=== PATIENT | female | born 1965 | race Caucasian/White ===

== ENCOUNTER 2024-08-06 16:35 | Inpatient (IN) | payer BC, SELFPAY ==
--- NOTE | ~2024-08-06 | XR_ITS ---
EXAMINATION: XR FOOT, LEFT CLINICAL INFORMATION: Wound. Concern for osteomyelitis. COMPARISON: None available. TECHNIQUE: AP, lateral, and oblique views of the left foot. FINDINGS: Radiolucent lesion with sclerotic margins at the proximal shaft of the third metatarsal measuring about 7 mm. The osteosclerotic margins suggesting a benign etiology. There is no abnormal periosteal reaction. There is loss of Bone/bone destruction of the distal tuft of the distal phalanx of the fourth toe. In an appropriate clinical setting this would be concerning for osteomyelitis. No air in the soft tissue. Large plantar calcaneal spur. XR/XR foot LT min 3V IMPRESSION: Bone destruction of the distal tuft of the distal phalanx of the fourth toe. In an appropriate clinical setting this would be concerning for osteomyelitis. Electronically signed by: Jakob Lopez MD 08/06/2024 06:30 PM EDT
--- NOTE | ~2024-08-06 | US_ITS ---
EXAMINATION: US TRIPLEX LOWER EXTREMITY, LEFT CLINICAL INFORMATION: Swelling COMPARISON: None available. TECHNIQUE: Color-flow triplex imaging with spectral analysis and compression Doppler were performed on the left lower extremity. FINDINGS: Respiratory variation, normal compression and augmented flow are noted throughout the left lower extremity. The visualized common femoral vein, superficial femoral vein, profunda femoral vein, popliteal vein and midcalf peroneal and posterior tibial venous segments show no evidence of deep venous thrombosis. There is no Reynolds's cyst. Multiple groin lymph nodes. US/US venous duplex LE LT IMPRESSION: No evidence of deep venous thrombosis involving the left lower extremity. Electronically signed by: Chari Hill MD 08/06/2024 05:51 PM EDT
--- NOTE | ~2024-08-06 | IR_ITS ---
CLINICAL HISTORY: IV antibiotics. Unsuccessful bedside attempt. PROCEDURES: 1. Real-time ultrasound-guided access into the right basilic vein after documentation of selected vessel patency, and permanent imaging storing in the patient record. 2. Placement of a 5 fr 45 cm, dual lumen PASV power PICC CLINICIANS: Zaid Santos PA-C MEDICATIONS: -Lidocaine 1% 10 mL SQ. -Antibiotics: None. Complications: None. Estimated blood loss: <5 ml Specimens: None. Contrast: None. Fluoroscopy time: 0.5 min Procedure note: The procedure, risks, benefits, and alternatives were carefully explained to the patient and written informed consent was obtained. The patient was placed supine on the fluoroscopy table. A timeout was performed. The right arm was prepped and draped in usual sterile fashion. Using ultrasound and fluoroscopic guidance, venous access was achieved into the basilic vein with a micropuncture set. A peel-away sheath was advanced over the wire. The 0.018 inch wire was advanced into the right atrium. A 5 fr, 45 cm, dual lumen power PICC was advanced over the wire, with its tip in the the cavoatrial junction. The wire was removed. The catheter was tested and secured with a 3-0 nylon suture. A dry sterile dressing was applied. A permanent ultrasound image and chest fluoroscopic image was saved to PACS. The patient was stable after the procedure and was transferred to the floor. FINDINGS: 1. Patent right basilic vein 2. Placement of a 5 fr 45 cm, dual lumen power PICC IR/IR cvc insert peripheral IMPRESSION: Placement of a 5 fr 45 cm, dual lumen PASV power PICC PLAN: -The catheter may be used immediately. This procedure was performed by Zaid Santos PA-C, and directly supervised by Dr. Garza Electronically signed by: Alejandro Garza MD 08/12/2024 08:55 AM EDT
--- NOTE | ~2024-08-06 | US_ITS ---
EXAMINATION: ARTERIAL DUPLEX LEFT LEG CLINICAL INFORMATION: PVD COMPARISON: None TECHNIQUE: Duplex Doppler of the left lower extremity arterial systems was performed. FINDINGS: LEFT: Common femoral: PSV 146 cm/s. Triphasic waveform. Deep femoral: PSV 39 cm/s. Triphasic waveform. Proximal superficial femoral: PSV 80 cm/s. Triphasic waveform. Mid superficial femoral: PSV 130 cm/s. High flow monophasic waveform. Distal superficial femoral: PSV 107 cm/s. Triphasic waveform. Popliteal: PSV 81 cm/s. High flow monophasic waveform. Posterior tibial: PSV 100 cm/s. Triphasic waveform. Peroneal: PSV 113 cm/s. High flow monophasic waveform. Anterior tibial: PSV 56 cm/s. High flow monophasic waveform. Dorsalis pedis: PSV 47 cm/s. High flow monophasic waveform. There are morphologically normal, mildly enlarged lymph nodes in the left groin. US/US arterial duplex LE LT IMPRESSION: No evidence of hemodynamically significant peripheral arterial disease by Doppler criteria. There are high flow monophasic waveforms which are nonspecific but can be seen after exercise, with hyperthermia, and with hyperemia such as cellulitis. Clinical correlation and follow-up are necessary. Morphologically normal, mildly enlarged lymph nodes in the left groin are likely reactive. Clinical correlation and follow-up are necessary. Electronically signed by: Andrew Arguelles MD 08/07/2024 10:18 AM EDT
[2024-08-06 16:56] VITALS: BP 119/83; PULSE 91; RESP 16; TEMP 37.1; O2SAT 98; BMI 41.2
--- NOTE | 2024-08-06 16:57 | ED.EXTPRO ---
HPI - Extremity Problem General Chief complaint: Wound/Laceration Stated complaint: left foot red,swollen Time Seen by Provider: 08/06/24 22:16 Source: patient Limitations: no limitations History of Present Illness ED Provider: Michelle Chase PA-C HPI Narrative: 59-year-old female with history of diabetes, hypertension, hyperlipidemia and hypothyroidism presents with left foot infection times 5 days. Patient states she developed left 4th toe pain without preceding injury that she recalls. Patient developed a blister on top of the toe that became increasingly red, warm and swollen. At this point, the tissue has sloughed off, exposing the underlying tissue. The warmth, swelling and redness now spans across the dorsum of the foot and upward over anterior guy. Patient was seen at urgent care the beginning of the week was placed on doxycycline. Patient denies fever. Related Data Home Medications ?Medication ?Instructions ?Recorded ?Confirmed atorvastatin 10 mg tablet 10 mg PO DAILY 08/06/24 08/06/24 diazepam 10 mg tablet 10 mg PO TID 08/06/24 08/06/24 glipizide 10 mg tablet, extended 10 mg PO DAILY 08/06/24 08/06/24 release 24 hr hydromorphone 4 mg tablet 4 mg PO TID 08/06/24 08/06/24 levothyroxine 150 mcg tablet 150 mcg PO DAILY 08/06/24 08/06/24 lisinopril 5 mg tablet 5 mg PO DAILY 08/06/24 08/06/24 semaglutide 3 mg tablet (Rybelsus) 3 mg PO DAILY 08/06/24 08/06/24 Allergies Allergy/AdvReac Type Severity Reaction Status Date / Time oxycodone [From PERCOCET] Allergy Unknown HEADACHE, Verified 08/06/24 23:11 UPSET STOMACH Sulfa (Sulfonamide Allergy Unknown unknown Verified 08/06/24 23:11 Antibiotics) [SULFA (SULFONAMIDE ANTIBIOTICS)] acetaminophen [From VICODIN] AdvReac Unknown HEADACHE, Verified 08/06/24 23:11 UPSET STOMACH cortisone [CORTISONE] AdvReac Unknown flu like Verified 08/06/24 23:11 symptoms hydrocodone [From VICODIN] AdvReac Unknown HEADACHE, Verified 08/06/24 23:11 UPSET STOMACH prednisone [PREDNISONE] AdvReac Unknown flu like Verified 08/06/24 23:11 symptoms Review of Systems Review of Systems: Yes all other systems are reviewed and are negative Constitutional: Constitutional: Denies fever(s) Cardiovascular: Cardiovascular: Denies chest pain and Denies dyspnea Respiratory: Respiratory: Denies dyspnea Musculoskeletal: Musculoskeletal: Reports arthralgias and Reports joint swelling [facility] Past Medical History Attestation statement: The following information was validated with the patient. Social History Social History Advance Directives: No Advance Directives Information Provided: No Physical Exam Vital Signs: Vital Signs: Last Vital Signs Temp 98.5 F 08/06/24 23:16 Pulse 87 08/06/24 23:16 Resp 16 08/06/24 23:16 BP 129/70 08/06/24 23:16 Pulse Ox 97 08/06/24 23:16 O2 Del Method Room Air 08/06/24 23:16 BMI result Body Mass Index 41.2 Const: Other: Alert, overall well in appearance Orientation/consciousness: patient oriented x3 Resp: Other: Nonlabored respiration Cardio: Other: Normal peripheral perfusion Neuro: General: patient oriented x3, no focal motor deficits and CN's II-XI intact bilaterally Extrem: Other: The left foot is swollen with overlying erythema/purpura vs ecchymosis, spans over the dorsum of the foot and extends upward over anterior guy. The dorsum of the left toe is abraded to subcutaneous tissue, with bloody drainage. The lower extremity is warm to touch Psych: Other: [employer] cooperative Course Course Course Narrative: This is a Rapid Medical Examination (RME) performed by Tyrone Alcala PA-C in triage. Full HPI, ROS, assessment and treatment plan per primary provider in the Main ED. 59 yo female with history of DM2 presents to the ER for evaluation of left toe and foot redness and pain that has been worsening for the last 3 days. Has been on doxycycline since Saturday. Started as a sore 4th toe that expanded to a large blood blister and now the redness and swelling is spreading up the foot and leg. left foot with 4th toe wound, yellow drainage, erythema, warmth and swelling over the entire foot and lower leg swelling present. ambulating with a limp. Plan: XR foot, labs, cultures, LE doppler Medications Administered Discontinued Medications Generic Name Dose Route Start Last Admin Trade Name Freq PRN Reason Stop Dose Admin Piperacillin Sod/Tazobactam 50 mls @ 100 mls/hr 08/06/24 22:44 08/06/24 23:10 Sod 3.375 gm/ Sodium Chloride IV 08/06/24 23:13 100 mls/hr ONCE ONE Administration Medical Decision Making Medical Decision Making [facility] Narrative: 59-year-old female with history of diabetes, hypertension, hyperlipidemia and hypothyroidism presents with left foot infection times 5 days. Patient states she developed left 4th toe pain without preceding injury that she recalls. Patient developed a blister on top of the toe that became increasingly red, warm and swollen. At this point, the tissue has sloughed off, exposing the underlying tissue. The warmth, swelling and redness now spans across the dorsum of the foot and upward over anterior guy. Patient was seen at urgent care the beginning of the week was placed on doxycycline. Patient denies fever. Problem: Diabetes, hypertension, age History: Per patient I have considered the following differential diagnoses: Cellulitis, purulent cellulitis, fracture, dislocation, osteomyelitis Plan: Patient is assessment began in [facility], she has known osteomyelitis of the left 4th digit. Screening labs including inflammatory markers were obtained. Obtaining blood cultures and a lactate. We will start empiric Zosyn and vancomycin, she will be admitted. I have independently reviewed the following tests: Labs: Lactate 0.8, no leukocytosis, not anemic, no electrolyte abnormality Ultrasound left lower extremity: ECHNIQUE: Color-flow triplex imaging with spectral analysis and compression Doppler were performed on the left lower extremity. FINDINGS: Respiratory variation, normal compression and augmented flow are noted throughout the left lower extremity. The visualized common femoral vein, superficial femoral vein, profunda femoral vein, popliteal vein and midcalf peroneal and posterior tibial venous segments show no evidence of deep venous thrombosis. There is no Reynolds's cyst. Multiple groin lymph nodes. US/US venous duplex LE LT IMPRESSION: No evidence of deep venous thrombosis involving the left lower extremity. Electronically signed by: Chari Hill MD 08/06/2024 05:51 PM EDT X-ray left foot:TECHNIQUE: AP, lateral, and oblique views of the left foot. FINDINGS: Radiolucent lesion with sclerotic margins at the proximal shaft of the third metatarsal measuring about 7 mm. The osteosclerotic margins suggesting a benign etiology. There is no abnormal periosteal reaction. There is loss of Bone/bone destruction of the distal tuft of the distal phalanx of the fourth toe. In an appropriate clinical setting this would be concerning for osteomyelitis. No air in the soft tissue. Large plantar calcaneal spur. XR/XR foot LT min 3V IMPRESSION: Bone destruction of the distal tuft of the distal phalanx of the fourth toe. In an appropriate clinical setting this would be concerning for osteomyelitis. Electronically signed by: Jakob Lopez MD 08/06/2024 06:30 PM EDT Lab Data 08/06/24 17:51 08/06/24 17:50 Labs: Lab Results 08/06/24 08/06/24 Range/Units 17:50 17:51 WBC 9.4 (4.8-10.8) X10*3/uL RBC 4.48 (4.20-5.50) X10*6/uL Hgb 13.6 (12.0-16.0) g/dl Hct 39.3 (37.0-47.0) % MCV 87.7 (80.0-98.0) fL MCH 30.4 (27.0-33.0) pg MCHC 34.6 (31.0-35.0) g/dl RDW 11.6 (11.0-16.0) % Plt Count 198 (160-400) X10*3/uL MPV 10.2 (9.4-12.3) fL Immature Gran % (Auto) 0.3 (0.0-0.4) % Neut % (Auto) 57.0 (45-73) % Lymph % (Auto) 29.8 (20-40) % Shannon % (Auto) 7.5 (2-11) % Eos % (Auto) 4.8 H (0-4) % Baso % (Auto) 0.6 (0-2) % Lymph # (Auto) 2.8 (1.2-4.9) X10*3/uL Shannon # (Auto) 0.7 (0.1-1.2) X10*3/uL Eos # (Auto) 0.5 H (0.0-0.4) X10*3/uL Baso # (Auto) 0.1 (0.0-0.2) X10*3/uL Abs Immat Gran (auto) 0.03 (0.00-0.03) X10*3/uL Absolute Neuts (auto) 5.4 (2.0-8.3) x10*3/uL Absolute Nucleated RBC 0.000 (0.0-0.012) X10*3/uL Nucleated RBC % (auto) 0.0 (0.0-0.2) /100WBC ESR 58 H (0-20) MM/HR Sodium 138 (135-145) mmol/L Potassium 4.4 (3.3-5.1) mmol/L Chloride 102 (96-108) mmol/L Carbon Dioxide 27 (22-29) mmol/L Anion Gap 13 (12-20) BUN 16 (9-16) mg/dL Creatinine 0.87 (0.5-1.4) mg/dL Estim Creat Clear Calc 84.9 Estimated GFR > 60 Random Glucose 157 H (60-115) mg/dL Lactic Acid 0.8 (0.5-2.0) mmol/L Calcium 9.9 (8.4-10.2) mg/dL Magnesium 1.8 (1.6-2.6) mg/dL Total Bilirubin 0.3 (0.0-1.0) mg/dL Direct Bilirubin 0.1 (0.0-0.5) mg/dL AST 27 (5-31) U/L ALT 28 (0-31) U/L Alkaline Phosphatase 88 (39-117) U/L C-Reactive Protein 4.01 H (< or = 0.50) mg/dL Total Protein 8.0 (6.5-8.0) g/dL Albumin 3.9 (3.5-5.0) g/dL Discharge Plan Discharge Clinical Impression: Acute osteomyelitis of toe of left foot Prescriptions: No Action atorvastatin 10 mg tablet 10 mg PO DAILY glipizide 10 mg tablet extended release 24hr 10 mg PO DAILY levothyroxine 150 mcg tablet 150 mcg PO DAILY lisinopril 5 mg tablet 5 mg PO DAILY diazepam 10 mg tablet 10 mg PO TID hydromorphone 4 mg tablet 4 mg PO TID Rybelsus 3 mg tablet 3 mg PO DAILY Print Language: Macedonian
[2024-08-06 17:56] LABS: MANUAL DIFF FLAG NO
[2024-08-06 18:01] LABS: Basophils Absolute Auto 0.1 X10*3/uL (0.0-0.2); Basophils Percent Auto 0.6 % (0-2); Eosinophils Absolute Auto 0.5 X10*3/uL (0.0-0.4); Eosinophils Percent Auto 4.8 % (0-4); Hematocrit 39.3 % (37.0-47.0); Hemoglobin 13.6 g/dl (12.0-16.0); Imm Gran Abs Auto 0.03 X10*3/uL (0.00-0.03); Imm Gran Pct Auto 0.3 % (0.0-0.4); Lymphocytes Absolute Auto 2.8 X10*3/uL (1.2-4.9); Lymphocytes Percent Auto 29.8 % (20-40); Mean Corpuscular HGB Conc 34.6 g/dl (31.0-35.0); Mean Corpuscular Hemoglobin 30.4 pg (27.0-33.0); Mean Corpuscular Volume 87.7 fL (80.0-98.0); Mean Platelet Volume 10.2 fL (9.4-12.3); Monocytes Absolute Auto 0.7 X10*3/uL (0.1-1.2); Monocytes Percent Auto 7.5 % (2-11); Neutrophils Absolute Auto 5.4 x10*3/uL (2.0-8.3); Platelet Count 198 X10*3/uL (160-400); Red Blood Count 4.48 X10*6/uL (4.20-5.50); Red Cell Distribution Width 11.6 % (11.0-16.0); White Blood Count 9.4 X10*3/uL (4.8-10.8)
[2024-08-06 18:22] LABS: Lactic Acid 0.8 mmol/L (0.5-2.0)
[2024-08-06 18:28] LABS: Alanine Aminotransferase 28 U/L (0-31); Albumin Level 3.9 g/dL (3.5-5.0); Alkaline Phosphatase 88 U/L (39-117); Anion Gap 13 (12-20); Aspartate Amino Transferase 27 U/L (5-31); Bilirubin Direct 0.1 mg/dL (0.0-0.5); Bilirubin Total 0.3 mg/dL (0.0-1.0); Blood Urea Nitrogen 16 mg/dL (9-16); C Reactive Protein 4.01 mg/dL (< or = 0.50); Calcium 9.9 mg/dL (8.4-10.2); Carbon Dioxide 27 mmol/L (22-29); Chloride 102 mmol/L (96-108); Creatinine Clr Calc Pharmacy 84.9; Estimated Glomerular Filt Rate > 60; Glucose Random 157 mg/dL (60-115); Magnesium 1.8 mg/dL (1.6-2.6); Potassium 4.4 mmol/L (3.3-5.1); Sodium 138 mmol/L (135-145)
[2024-08-06 18:55] LABS: Erythrocyte Sedimentation Rate 58 MM/HR (0-20)
[2024-08-06] MEDS: Piperacillin Sodium/Tazobactam 3.375 GM in 0.9 % Sodium Chloride 50 ML IV (23:10)
[2024-08-06 23:16] VITALS: BP 129/70; PULSE 87; RESP 16; TEMP 36.9; O2SAT 97
--- NOTE | 2024-08-07 | PM.IMHP ---
History of Present Illness Date of Service: 08/07/24 Chief Complaint: left toe and leg erythema 59F PMH DM, morbid obesity, chronic pain/ back spasms, hypothryoid, hld presented with lle erythema. Patient states she woke up about 4 days prior to presentation with blood blister on left 4th toe. Does not remember any trauma. Denies significant neuropathy to left foot. Blister then ruptured and patient started noticing increased swelling and erythema of foot and lower leg. Denies any fever or chills. In ED foot x-ray with concern for left 4th toe osteomyelitis, duplex negative for DVT. Review of Systems Review of Systems: Yes all other systems are reviewed and are negative [facility] Medical History (Updated 08/07/24 @ 00:03 by Ranjan Pepe MD) Diabetes mellitus Social History Advance Directives: No Advance Directives Information Provided: No Meds Allergies Allergy/AdvReac Type Severity Reaction Status Date / Time oxycodone [From PERCOCET] Allergy Unknown HEADACHE, Verified 08/06/24 23:11 UPSET STOMACH Sulfa (Sulfonamide Allergy Unknown unknown Verified 08/06/24 23:11 Antibiotics) [SULFA (SULFONAMIDE ANTIBIOTICS)] acetaminophen [From VICODIN] AdvReac Unknown HEADACHE, Verified 08/06/24 23:11 UPSET STOMACH cortisone [CORTISONE] AdvReac Unknown flu like Verified 08/06/24 23:11 symptoms hydrocodone [From VICODIN] AdvReac Unknown HEADACHE, Verified 08/06/24 23:11 UPSET STOMACH prednisone [PREDNISONE] AdvReac Unknown flu like Verified 08/06/24 23:11 symptoms Active Medications: Current Medications Atorvastatin Calcium (Atorvastatin Calcium 10 Mg Tablet) 10 mg PO DAILY [facility] Diazepam (Diazepam 5 Mg Tablet) 10 mg PO TID [facility] Diazepam (Diazepam 5 Mg Tablet) 10 mg PO ONCE ONE Stop: 08/06/24 23:59 Glucose (Glucose Gel 15 Gm Gel..Gram.) 15 gm PO Q15M PRN; Protocol PRN Reason: per Hypoglycemia Standing Ord. Hydromorphone HCl (Hydromorphone Hcl 4 Mg Tablet) 4 mg PO TID [facility] Hydromorphone HCl (Hydromorphone Hcl 4 Mg Tablet) 4 mg PO ONCE ONE Stop: 08/06/24 23:59 Vancomycin HCl (Vancomycin/Ns) 2,000 mg in 500 mls @ 250 mls/hr IV ONCE ONE Stop: 08/07/24 00:43 Dextrose (D10) 250 mls @ 750 mls/hr IV Q15M PRN; Protocol PRN Reason: per Hypoglycemia Standing Ord. Vancomycin HCl 1,000 mg/ (Sodium Chloride) 270 mls @ 270 mls/hr IV Q12H [facility] Piperacillin Sod/Tazobactam (Sod 3.375 gm/ Sodium Chloride) 50 mls @ 100 mls/hr IV Q6H [facility] Insulin Human Lispro (Insulin Lispro 100 Unit/Ml 3 Ml Vial) 0 unit SUBCUT QIDACHS [facility]; Protocol Levothyroxine Sodium (Levothyroxine Sodium 150 Mcg Tablet) 150 mcg PO DAILY@0630 [facility] Lisinopril (Lisinopril 5 Mg Tablet) 5 mg PO DAILY [facility]; Protocol Pharmacy Consult (Consult Rx Vancomycin Dosing) 1 each MISCELLANE DAILY PRN PRN Reason: Consult order Home Medications ?Medication ?Instructions ?Recorded ?Confirmed ?Last Taken ?Type atorvastatin 10 mg tablet 10 mg PO DAILY 08/06/24 08/06/24 Unknown History diazepam 10 mg tablet 10 mg PO TID 08/06/24 08/06/24 Unknown History glipizide 10 mg tablet, extended 10 mg PO DAILY 08/06/24 08/06/24 Unknown History release 24 hr hydromorphone 4 mg tablet 4 mg PO TID 08/06/24 08/06/24 Unknown History levothyroxine 150 mcg tablet 150 mcg PO DAILY 08/06/24 08/06/24 Unknown History lisinopril 5 mg tablet 5 mg PO DAILY 08/06/24 08/06/24 Unknown History semaglutide 3 mg tablet (Rybelsus) 3 mg PO DAILY 08/06/24 08/06/24 Unknown History Physical Exam Vital Signs and Narrative: Vital Signs: Last Vital Signs Temp 98.5 F 08/06/24 23:16 Pulse 87 08/06/24 23:16 Resp 16 08/06/24 23:16 BP 129/70 08/06/24 23:16 Pulse Ox 97 08/06/24 23:16 O2 Del Method Room Air 08/06/24 23:16 BMI result Body Mass Index 41.2 General: AO X 3, no acute distress Resp: CTA bilateral, no accessory muscles used CVS: S1,S2,RRR GI: soft, non tender, non distended Neuro: motor grossly intact, alert Psych: appropriate affect, appropriate insight Results Labs 08/06/24 17:51 08/06/24 17:50 Labs: Laboratory Results - last 24 hr 08/06/24 08/06/24 17:50 17:51 MCV 87.7 MCH 30.4 MCHC 34.6 RDW 11.6 Plt Count 198 MPV 10.2 Immature Gran % (Auto) 0.3 Neut % (Auto) 57.0 Lymph % (Auto) 29.8 Gray % (Auto) 7.5 Eos % (Auto) 4.8 H Baso % (Auto) 0.6 Lymph # (Auto) 2.8 Gray # (Auto) 0.7 Eos # (Auto) 0.5 H Baso # (Auto) 0.1 Abs Immat Gran (auto) 0.03 Absolute Neuts (auto) 5.4 Absolute Nucleated RBC 0.000 Nucleated RBC % (auto) 0.0 ESR 58 H Anion Gap 13 Estim Creat Clear Calc 84.9 Estimated GFR > 60 Random Glucose 157 H Lactic Acid 0.8 Calcium 9.9 Magnesium 1.8 Total Bilirubin 0.3 Direct Bilirubin 0.1 AST 27 ALT 28 Alkaline Phosphatase 88 C-Reactive Protein 4.01 H Total Protein 8.0 Albumin 3.9 Imaging Radiologist's Impressions: Impressions Foot X-Ray 08/06/24 16:58 IMPRESSION: Bone destruction of the distal tuft of the distal phalanx of the fourth toe. In an appropriate clinical setting this would be concerning for osteomyelitis. Electronically signed by: Jakob Lopez MD 08/06/2024 06:30 PM EDT RP Venous Duplex 08/06/24 17:30 IMPRESSION: No evidence of deep venous thrombosis involving the left lower extremity. Electronically signed by: Chari Hill MD 08/06/2024 05:51 PM EDT RP Assessment and Plan (1) Diabetes mellitus: Status: Acute Plan 59F PMH DM, morbid obesity, chronic pain/ back spasms, hypothryoid, hld presented with lle erythema Left lower extremity cellulitis and concern for left 4th toe osteomyelitis due to diabetes IV vancomycin Zosyn Check arterial duplex Follow-up cultures ID and vascular eval Morbid obesity Weight loss recommended Diabetes Insulin sliding scale Lisinopril for proteinuria Chronic pain/back spasms Continue hydromorphone and Valium Hypothyroid Continue levothyroxine Hyperlipidemia continue statin DVT prophylaxis with Lovenox Full Code Patient with significant cellulitis and possible osteomyelitis requiring IV antibiotics at risk for further decompensation due to diabetes, therefore expected require at least 2 midnights inpatient Quality Stroke Does the patient have a stroke diagnosis?: No VTE Prior VTE?: No VTE Risk Level:: Medical - moderate - high VTE Device Contraindication: Treatment Not Indicated VTE Drug Contraindication: N/A - Med Ordered
[2024-08-07] MEDS: vancomycin/NS 2,000 MG/500 ML PLAST..BAG 250 MG IV (00:29)
[2024-08-07] MEDS: diazePAM 5 MG TABLET 10 MG PO ×4 (00:45→20:18)
[2024-08-07 00:52] LABS: Appearance Urine Clear; Color Urine Yellow; Glucose Urine UA Negative (Negative); Leukocyte Esterase Urine Small (1+) (Negative); Nitrite Urine Negative (Negative); UMIC TRIGGER UACC YES; Urine Blood Negative (Negative); Urine Ketones Negative (Negative); Urine Protein Negative (Neg-Trace)
[2024-08-07 00:55] LABS: Bacteria Urine Trace (None Seen); Hyaline Casts Urine 0-2 /LPF (0-2); RBC Urine 0-2 /HPF (0-2); UACC Culture Trigger YES
[2024-08-07 01:03] VITALS: BMI 40.1
--- NOTE | 2024-08-07 01:24 | PC.NURSE ---
pt had home meds on self, some controlled, meds sealed in pharmacy bag; verified and handed over to Medsurg KATEY Holcomb. pt transported to [facility].
[2024-08-07 01:45] VITALS: BP 129/87; PULSE 80; RESP 18; TEMP 36; O2SAT 99
[2024-08-07] MEDS: Piperacillin Sodium/Tazobactam 3.375 GM in 0.9 % Sodium Chloride 50 ML IV ×4 (05:21→23:15)
[2024-08-07 05:24] VITALS: BP 122/61; PULSE 80; RESP 16; TEMP 36.1; O2SAT 99
[2024-08-07 06:42] LABS: Anion Gap 11 (12-20); Blood Urea Nitrogen 12 mg/dL (9-16); Calcium 9.5 mg/dL (8.4-10.2); Carbon Dioxide 27 mmol/L (22-29); Chloride 105 mmol/L (96-108); Creatinine Clr Calc Pharmacy 82.7; Estimated Glomerular Filt Rate > 60; Glucose Fasting 186 mg/dL (60-99); Magnesium 1.9 mg/dL (1.6-2.6); Potassium 4.6 mmol/L (3.3-5.1); Sodium 138 mmol/L (135-145)
[2024-08-07 06:43] LABS: Hematocrit 41.3 % (37.0-47.0); Hemoglobin 13.7 g/dl (12.0-16.0); Mean Corpuscular HGB Conc 33.2 g/dl (31.0-35.0); Mean Corpuscular Hemoglobin 29.6 pg (27.0-33.0); Mean Corpuscular Volume 89.2 fL (80.0-98.0); Mean Platelet Volume 10.5 fL (9.4-12.3); Platelet Count 196 X10*3/uL (160-400); Red Blood Count 4.63 X10*6/uL (4.20-5.50); Red Cell Distribution Width 11.8 % (11.0-16.0); White Blood Count 6.3 X10*3/uL (4.8-10.8)
[2024-08-07 07:38] VITALS: BP 116/59; PULSE 74; RESP 16; TEMP 36; O2SAT 99
[2024-08-07 07:38] LABS: Glucose, Whole Blood 161 mg/dL (60-115)
[2024-08-07] MEDS: lisinopriL 5 MG TABLET PO (08:13)
[2024-08-07] MEDS: Atorvastatin Calcium 10 MG TABLET PO (08:14)
[2024-08-07] MEDS: 0.9 % Sodium Chloride Flush 3 ML SYRINGE IVFLUSH ×3 (08:15→20:20)
[2024-08-07] MEDS: glipiZIDE XL 5 MG TAB.ER.24 PO (10:27)
--- NOTE | 2024-08-07 10:46 | P.CONGS_ITS ---
History of Present Illness Consult details Consult date: 08/07/24 Reason for consult: wound care Narrative: Very pleasant 59-year-old female presents for evaluation regarding nonhealing left foot ulcer. She reports that it originally began as a blood blister. She denies any significant trauma. It is expanded on the toe and blistered. She had thoughts of opening it up but it eventually opened on its own. Became quite erythematous and was subsequently brought into the hospital. She reports a longstanding history of diabetes. In addition she quit smoking about 5 years ago prior to that she was smoking about a pack a day. She now presents to us for vascular evaluation. Review of Systems 2 Review of Systems: Yes all other systems are reviewed and are negative Constitutional: Constitutional: Reports no additional constitutional complaints ENT: Reports Normal hearing present Cardiovascular: Cardiovascular: Denies chest pain, Denies chest pain at rest, Denies chest pain with activity and Denies pedal edema Respiratory: Respiratory: Denies cough Gastrointestinal: Gastrointestinal: Denies abdominal pain Musculoskeletal: Musculoskeletal: Denies abnormal gait, Denies muscle cramps and Denies radiating pain into limb Integumentary/Breasts: Skin/Breast: Denies skin ulcer and Denies wounds Neurologic: Reports Normal hearing present and Denies abnormal gait Psychiatric: Psychiatric: Reports no additional psychiatric complaints PMFSH Past Medical History Medical History (Updated 08/07/24 @ 11:28 by Terrell Cameron MD) Diabetes mellitus Social History Social History Household Members: Family and Other Household Members Other:: mother Housing: House Do you presently have visiting nurse or other home services: No Patient Tobacco Use Status: Former Tobacco user Substance Use Type: Marijuana Meds Allergies Allergy/AdvReac Type Severity Reaction Status Date / Time oxycodone [From PERCOCET] Allergy Unknown HEADACHE, Verified 08/06/24 23:11 UPSET STOMACH Sulfa (Sulfonamide Allergy Unknown unknown Verified 08/06/24 23:11 Antibiotics) [SULFA (SULFONAMIDE ANTIBIOTICS)] acetaminophen [From VICODIN] AdvReac Unknown HEADACHE, Verified 08/06/24 23:11 UPSET STOMACH cortisone [CORTISONE] AdvReac Unknown flu like Verified 08/06/24 23:11 symptoms hydrocodone [From VICODIN] AdvReac Unknown HEADACHE, Verified 08/06/24 23:11 UPSET STOMACH prednisone [PREDNISONE] AdvReac Unknown flu like Verified 08/06/24 23:11 symptoms Active Medications: Current Medications Atorvastatin Calcium (Atorvastatin Calcium 10 Mg Tablet) 10 mg PO DAILY [facility] Last Admin: 08/07/24 08:14 Dose: 10 mg Calcium Carbonate (Calcium Carbonate 750 Mg Tab.Chew) 750 mg PO Q4H PRN PRN Reason: Heartburn Diazepam (Diazepam 5 Mg Tablet) 10 mg PO TID [facility] Last Admin: 08/07/24 08:14 Dose: 10 mg Enoxaparin Sodium (Enoxaparin Sodium 40 Mg/0.4 Ml Syringe) 40 mg SUBCUT Q24H [facility] Last Admin: 08/07/24 08:19 Dose: Not Given Glipizide (Glipizide Xl 5 Mg Tab.Er.24) 5 mg PO DAILY [facility] Last Admin: 08/07/24 10:27 Dose: 5 mg Glucose (Glucose Gel 15 Gm Gel..Gram.) 15 gm PO Q15M PRN; Protocol PRN Reason: per Hypoglycemia Standing Ord. Hydromorphone HCl (Hydromorphone Hcl 4 Mg Tablet) 4 mg PO TID [facility] Last Admin: 08/07/24 08:14 Dose: 4 mg Dextrose (D10) 250 mls @ 750 mls/hr IV Q15M PRN; Protocol PRN Reason: per Hypoglycemia Standing Ord. Piperacillin Sod/Tazobactam (Sod 3.375 gm/ Sodium Chloride) 50 mls @ 100 mls/hr IV Q6H [facility] Last Infusion: 08/07/24 06:03 Dose: Infused Vancomycin HCl 750 mg/ Sodium (Chloride) 265 mls @ 265 mls/hr IV Q12H [facility] Insulin Human Lispro (Insulin Lispro 100 Unit/Ml 3 Ml Vial) 0 unit SUBCUT QIDACHS [facility]; Protocol Last Admin: 08/07/24 08:20 Dose: Not Given Levothyroxine Sodium (Levothyroxine Sodium 150 Mcg Tablet) 150 mcg PO DAILY@0630 [facility] Last Admin: 08/07/24 05:36 Dose: Not Given Lisinopril (Lisinopril 5 Mg Tablet) 5 mg PO DAILY [facility]; Protocol Last Admin: 08/07/24 08:13 Dose: 5 mg Magnesium Hydroxide (Milk Of Magnesia 30 Ml Oral.Susp) 30 ml PO DAILY PRN PRN Reason: Constipation Melatonin (Melatonin 3 Mg Tablet) 6 mg PO BEDTIME PRN PRN Reason: Insomnia Pharmacy Consult (Consult Rx Vancomycin Dosing) 1 each MISCELLANE DAILY PRN PRN Reason: Consult order Sodium Chloride (0.9 % Sodium Chloride Flush 3 Ml Syringe) 3 ml [facility] [place] Last Admin: 08/07/24 08:15 Dose: 3 ml Zolpidem Tartrate (Zolpidem Tartrate 5 Mg Tablet) 5 mg PO BEDTIME PRN PRN Reason: Insomnia Home Medications ?Medication ?Instructions ?Recorded ?Confirmed ?Last Taken ?Type atorvastatin 10 mg tablet 10 mg PO DAILY 08/06/24 08/06/24 Unknown History diazepam 10 mg tablet 10 mg PO TID 08/06/24 08/06/24 Unknown History glipizide 10 mg tablet, extended 10 mg PO DAILY 08/06/24 08/06/24 Unknown History release 24 hr hydromorphone 4 mg tablet 4 mg PO TID 08/06/24 08/06/24 Unknown History levothyroxine 150 mcg tablet 150 mcg PO DAILY 08/06/24 08/06/24 Unknown History lisinopril 5 mg tablet 5 mg PO DAILY 08/06/24 08/06/24 Unknown History semaglutide 3 mg tablet (Rybelsus) 3 mg PO DAILY 08/06/24 08/06/24 Unknown History Physical Exam 2 Vital Signs: Vital Signs: Last Vital Signs Temp 96.8 F 08/07/24 07:38 Pulse 74 08/07/24 07:38 Resp 16 08/07/24 07:38 BP 116/59 L 08/07/24 07:38 Pulse Ox 99 08/07/24 07:38 O2 Del Method Room Air 08/07/24 07:38 BMI result Body Mass Index 40.1 Const: General: cooperative, healthy appearing and comfortable O rientation/consciousness: oriented to person, oriented to place and oriented to time HEENT: Head: Yes normal to inspection Neck: Neck: Yes normal visual inspection Carotids: no bruits Chest: Chest palpation & inspection: normal inspection of the chest Resp: Effort & Inspection: normal respiratory effort and able to speak in complete sentences Auscultation: clear to auscultation bilaterally, no crackles, no rales, no rhonchi and no wheezes Cardio: Other: Bilateral DP signals Rate: regular rate Rhythm: regular rhythm Heart sounds: S1 normal heart sound present and S2 normal heart sound present Bruits: no carotid bruits Peripheral pulses: Peripheral pulses 2+ throughout GI: Inspection: Yes normal to inspection Skin: Wounds: no wounds Hair: normal Neuro: General: oriented to person, oriented to place and oriented to time Cranial nerves: Yes CN's II-XII intact bilaterally and Yes Normal hearing present Cognition (Neuro): normal cognition Motor exam (neuro): 5/5 motor strength present throughout Extrem: Other: venous exam: Left leg +2 edema, erythema from the foot tracking up the anterior part of the calf. General: No clubbing, No cyanosis and No edema Psych: Appearance: grossly normal Mental Status: mental status grossly normal Speech and movement: Normal speech and movement present Results Labs 08/07/24 05:39 08/07/24 05:39 Labs: Abnormal lab results 08/06/24 08/06/24 08/07/24 Range/Units 17:50 17:51 00:42 Eos % (Auto) 4.8 H (0-4) % Eos # (Auto) 0.5 H (0.0-0.4) X10*3/uL ESR 58 H (0-20) MM/HR Anion Gap (12-20) POC Glucose (60-115) mg/dL Random Glucose 157 H (60-115) mg/dL Fasting Glucose (60-99) mg/dL C-Reactive Protein 4.01 H (< or = 0.50) mg/dL Ur Leukocyte Esterase Small (1+) H (Negative) Urine WBC 6-10 H (0-5) /HPF 08/07/24 08/07/24 Range/Units 05:39 07:33 Eos % (Auto) (0-4) % Eos # (Auto) (0.0-0.4) X10*3/uL ESR (0-20) MM/HR Anion Gap 11 L (12-20) POC Glucose 161 H (60-115) mg/dL Random Glucose (60-115) mg/dL Fasting Glucose 186 H (60-99) mg/dL C-Reactive Protein (< or = 0.50) mg/dL Ur Leukocyte Esterase (Negative) Urine WBC (0-5) /HPF Short CBC 08/06/24 08/07/24 Range/Units 17:51 05:39 WBC 9.4 6.3 (4.8-10.8) X10*3/uL Hgb 13.6 13.7 (12.0-16.0) g/dl Hct 39.3 41.3 (37.0-47.0) % Plt Count 198 196 (160-400) X10*3/uL BMP 08/06/24 08/07/24 17:50 05:39 Sodium 138 138 Potassium 4.4 4.6 Chloride 102 105 Carbon Dioxide 27 27 BUN 16 12 Creatinine 0.87 0.88 Calcium 9.9 9.5 Liver Function 08/06/24 Range/Units 17:50 Total Bilirubin 0.3 (0.0-1.0) mg/dL Direct Bilirubin 0.1 (0.0-0.5) mg/dL AST 27 (5-31) U/L ALT 28 (0-31) U/L Alkaline Phosphatase 88 (39-117) U/L Albumin 3.9 (3.5-5.0) g/dL Urine 08/07/24 Range/Units 00:42 Urine Color Yellow Urine Appearance Clear Urine pH 6.0 (5.0-9.0) Ur Specific [place] 1.020 (1.005-1.025) Urine Protein Negative (Neg-Trace) mg/dL Urine Glucose (UA) Negative (Negative) mg/dL All other labs normal. Imaging Additional studies: Arterial ultrasound was reviewed in appears to be within normal limits. Assessment and Plan (1) PAD (peripheral artery disease): Status: Acute Plan In short patient has nonhealing left 4th toe ulcer. This is associated with cellulitis. X-ray demonstrates concern of osteomyelitis. Arterial testing appears to be within normal limits. At the current time would treat this conservatively with IV antibiotics. In terms of wound care would only recommend a dry protective dressing as it appears to be a dry superficial eschar. Stable from my perspective and actually can follow up with us as an outpatient as I do believe she does have an element of PA D and needs to be surveilled for this. Thank you for allowing us to assist in her care. If there are any questions or concerns please do not hesitate to contact us. Procedures Date of Service Date of Service: 08/07/24
[2024-08-07 10:47] LABS: Estimated Average Glucose 237 mg/dL; Hemoglobin A1c % 9.9 % (<6.0)
--- NOTE | 2024-08-07 11:05 | HO.PM.IMPN ---
Subjective Subjective Date of Service: 08/07/24 Interval History: seen and evaluated this morning feels better overall refusing blood checks and Insulin No other overnight events Review of Systems Review of Systems: Yes all other systems are reviewed and are negative Physical Exam Vital Signs: Vital Signs: Last Vital Signs Temp 96.8 F 08/07/24 07:38 Pulse 74 08/07/24 07:38 Resp 16 08/07/24 07:38 BP 116/59 L 08/07/24 07:38 Pulse Ox 99 08/07/24 07:38 O2 Del Method Room Air 08/07/24 07:38 BMI result Body Mass Index 40.1 Const: Other: Constitutional : Awake, interactive, not in distress Neck : Normal inspection, Supple Cardiovascular : RRR, no JVP, no lower extremity edema Respiratory : good bilateral air entry, no crackles, wheezes or rhonchi Gastrointestinal: soft, lax, Normal bowel sounds, Non tender Skin : Warm, Dry, left foot less swollen with overlying erythema up to anterior guy. warm with mild tenderness. exposed Left 4th toe dorsal side. Neurological : Alert & oriented x3, No focal deficit Objective Data Active Medications Atorvastatin Calcium (Atorvastatin Calcium 10 Mg Tablet) 10 mg PO DAILY [facility] Last Admin: 08/07/24 08:14 Dose: 10 mg Documented By: CARITO Calcium Carbonate (Calcium Carbonate 750 Mg Tab.Chew) 750 mg PO Q4H PRN PRN Reason: Heartburn Diazepam (Diazepam 5 Mg Tablet) 10 mg PO TID [facility] Last Admin: 08/07/24 08:14 Dose: 10 mg Documented By: CARITO Enoxaparin Sodium (Enoxaparin Sodium 40 Mg/0.4 Ml Syringe) 40 mg SUBCUT Q24H [facility] Last Admin: 08/07/24 08:19 Dose: Not Given Documented By: CARITO Non-Admin Reason: Patient Refused Glipizide (Glipizide Xl 5 Mg Tab.Er.24) 5 mg PO DAILY [facility] Last Admin: 08/07/24 10:27 Dose: 5 mg Documented By: CARITO Glucose (Glucose Gel 15 Gm Gel..Gram.) 15 gm PO Q15M PRN; Protocol PRN Reason: per Hypoglycemia Standing Ord. Hydromorphone HCl (Hydromorphone Hcl 4 Mg Tablet) 4 mg PO TID [facility] Last Admin: 08/07/24 08:14 Dose: 4 mg Documented By: CARITO Dextrose (D10) 250 mls @ 750 mls/hr IV Q15M PRN; Protocol PRN Reason: per Hypoglycemia Standing Ord. Piperacillin Sod/Tazobactam (Sod 3.375 gm/ Sodium Chloride) 50 mls @ 100 mls/hr IV Q6H [facility] Last Infusion: 08/07/24 06:03 Dose: Infused Documented By: RAJIV Vancomycin HCl 750 mg/ Sodium (Chloride) 265 mls @ 265 mls/hr IV Q12H [facility] Insulin Human Lispro (Insulin Lispro 100 Unit/Ml 3 Ml Vial) 0 unit SUBCUT QIDACHS [facility]; Protocol Last Admin: 08/07/24 08:20 Dose: Not Given Documented By: CARITO Non-Admin Reason: Patient Refused Levothyroxine Sodium (Levothyroxine Sodium 150 Mcg Tablet) 150 mcg PO DAILY@0630 [facility] Last Admin: 08/07/24 05:36 Dose: Not Given Documented By: RAJIV Non-Admin Reason: Patient Refused Lisinopril (Lisinopril 5 Mg Tablet) 5 mg PO DAILY [facility]; Protocol Last Admin: 08/07/24 08:13 Dose: 5 mg Documented By: CARITO Magnesium Hydroxide (Milk Of Magnesia 30 Ml Oral.Susp) 30 ml PO DAILY PRN PRN Reason: Constipation Melatonin (Melatonin 3 Mg Tablet) 6 mg PO BEDTIME PRN PRN Reason: Insomnia Pharmacy Consult (Consult Rx Vancomycin Dosing) 1 each MISCELLANE DAILY PRN PRN Reason: Consult order Sodium Chloride (0.9 % Sodium Chloride Flush 3 Ml Syringe) [facility] Last Admin: 08/07/24 08:15 Dose: 3 ml Documented By: CARITO Zolpidem Tartrate (Zolpidem Tartrate 5 Mg Tablet) 5 mg PO BEDTIME PRN PRN Reason: Insomnia Labs 08/07/24 05:39 08/07/24 05:39 Labs: Laboratory Results - last 24 hr 08/06/24 08/06/24 08/07/24 17:50 17:51 00:42 MCV 87.7 MCH 30.4 MCHC 34.6 RDW 11.6 Plt Count 198 MPV 10.2 Immature Gran % (Auto) 0.3 Neut % (Auto) 57.0 Lymph % (Auto) 29.8 [place] % (Auto) 7.5 Eos % (Auto) 4.8 H Baso % (Auto) 0.6 Lymph # (Auto) 2.8 [place] # (Auto) 0.7 Eos # (Auto) 0.5 H Baso # (Auto) 0.1 Abs Immat Gran (auto) 0.03 Absolute Neuts (auto) 5.4 Absolute Nucleated RBC 0.000 Nucleated RBC % (auto) 0.0 ESR 58 H Anion Gap 13 Estim Creat Clear Calc 84.9 Estimated GFR > 60 POC Glucose Random Glucose 157 H Fasting Glucose Estimat Average Glucose Hemoglobin A1c % Lactic Acid 0.8 Calcium 9.9 Magnesium 1.8 Total Bilirubin 0.3 Direct Bilirubin 0.1 AST 27 ALT 28 Alkaline Phosphatase 88 C-Reactive Protein 4.01 H Total Protein 8.0 Albumin 3.9 Urine Color Yellow Urine Appearance Clear Urine pH 6.0 Ur Specific [place] 1.020 Urine Protein Negative Urine Glucose (UA) Negative Urine Ketones Negative Urine Blood Negative Urine Nitrite Negative Ur Leukocyte Esterase Small (1+) H Urine RBC 0-2 Urine WBC 6-10 H Ur Squamous Epith Cells 11-20 Urine Bacteria Trace Hyaline Casts 0-2 08/07/24 08/07/24 05:39 07:33 MCV 89.2 MCH 29.6 MCHC 33.2 RDW 11.8 Plt Count 196 MPV 10.5 Immature Gran % (Auto) Neut % (Auto) Lymph % (Auto) [place] % (Auto) Eos % (Auto) Baso % (Auto) Lymph # (Auto) [place] # (Auto) Eos # (Auto) Baso # (Auto) Abs Immat Gran (auto) Absolute Neuts (auto) Absolute Nucleated RBC 0.000 Nucleated RBC % (auto) 0.0 ESR Anion Gap 11 L Estim Creat Clear Calc 82.7 Estimated GFR > 60 POC Glucose 161 H Random Glucose Fasting Glucose 186 H Estimat Average Glucose 237 Hemoglobin A1c % 9.9 H Lactic Acid Calcium 9.5 Magnesium 1.9 Total Bilirubin Direct Bilirubin AST ALT Alkaline Phosphatase C-Reactive Protein Total Protein Albumin Urine Color Urine Appearance Urine pH Ur Specific [place] Urine Protein Urine Glucose (UA) Urine Ketones Urine Blood Urine Nitrite Ur Leukocyte Esterase Urine RBC Urine WBC Ur Squamous Epith Cells Urine Bacteria Hyaline Casts Assessment and Plan (1) Diabetes mellitus: Status: Acute (2) Acute osteomyelitis of toe of left foot: Status: Acute (3) Diabetic foot infection: Status: Acute (4) Morbid obesity: Status: Acute (5) Uncontrolled diabetes mellitus with hyperglycemia, without long-term current use of insulin: Status: Acute Plan 59F PMH DM, morbid obesity, chronic pain/ back spasms, hypothryoid, hld presented with lle erythema Left lower extremity cellulitis and concern for left 4th toe osteomyelitis due to diabetes XR Foot suggetive of Osteomyelitis Continue IV vancomycin Zosyn arterial duplex not showing any significant stenosis, Vascular surgery following Follow-up cultures Pending ID eval follow Vancomycin trough Morbid obesity Weight loss recommended [place] type 2 Diabetes Refusing Insulin sliding scale Lisinopril for proteinuria Check HbA1c of 9.9 restart GLipizide To speak again to her about the need of better control and Insulin usage while inpatient. Chronic pain/back spasms Continue hydromorphone and Valium Hypothyroid Continue levothyroxine Hyperlipidemia continue statin DVT prophylaxis with Lovenox Full Code Patient with significant cellulitis and possible osteomyelitis requiring IV antibiotics at risk for further decompensation due to diabetes, therefore expected require overnight inpatient stay Quality Stroke Does the patient have a stroke diagnosis?: No VTE Prior VTE?: No VTE Risk Level:: Medical - moderate - high VTE Device Contraindication: Treatment Not Indicated VTE Drug Contraindication: N/A - Med Ordered
[2024-08-07 11:42] LABS: Glucose, Whole Blood 241 mg/dL (60-115)
[2024-08-07] MEDS: vancomycin HCL 750 MG in 0.9 % Sodium Chloride 250 ML 265 MG IV ×2 (12:18→23:56)
--- NOTE | 2024-08-07 13:12 | MHC.CM.PN ---
Patient lives in a home w/ her mother. Functionally independent. Denies use of DME or services. PCP @ [facility] No HCP. CM provided education and offered assistance. Patient will consider. DP: Per MD may require IV abx. Will likely need [facility]NA for SN/wound care. Patient prefers [facility]. Referrals sent in [facility] to [facility] and [facility]. Awaiting ID eval. CM will continue to follow.
--- NOTE | 2024-08-07 13:39 | PHA.MEDREC ---
Addendum entered by Toñito Angulo RPh 08/07/24 15:10: Med Rec checked by [facility] Original Note: Pharmacy Consult ? Medication Reconciliation Pharmacy Reviewed Med Rec done by nursing. Confirmed medications with patient. Patient confirmed she started the Doxycycline 100mg tab 1 BID and she stated she started that Saturday night and took one dose then, 2 tablets on Saturday and was only able to take her morning dose of it on before coming into the hospital. She also wanted to stress and state that she is taking her Levothyroxine 150mcg tablet along with Acetaminophen pm together every night around 2029 and will not take her thyroid medication in the morning. Patient states she took her medications yesterday morning before coming in.
[2024-08-07 15:33] VITALS: BP 125/56; PULSE 79; RESP 20; TEMP 36; O2SAT 98
--- NOTE | 2024-08-07 15:36 | HO.WOUND ---
Wound Consult: Initial 59yr old female? admitted to [facility] [place] on 08/07/24 00:00 - See progress notes and H&P for detailed history.? Wound consult placed for Left 4th Toe.? Patient agreeable to assessment and photo documentation.? While on unit direct care nurse reports the patient has a wound and requests consultation. Post assessment chart review reveals patient was seen by Dr. Cameron and topical orders for a dry dressing were placed with in his note. This as since been communicated to direct care nurse. Left 4th Toe Etiology: ?Diabetic Wound Measurements: see chart for detailed assessment Wound Bed: crusted necrotic tissue vs eschar with small open red moist tissue observed Drainage / Odor: none noted but pt reports significant amount of drainage which is why she was choosing to wear no dressing - she reports she was attempting to air it out Edges: ? unattached Vivian wound: ? red erythema and swelling noted Pain: pain reported Goals of Treatment: ?would recommend softening eschar with xeroform for moist wound healing since drainage and moisture noted - however given Dr. Cameron made topical recommendations with in his note will defer to him for topical orders. Direct care nurse aware. At the time of my assessment no dressing was placed due to patient requests defer to after shower for topical dressing. Direct care nurse notified.
[2024-08-07 16:02] LABS: Glucose, Whole Blood 190 mg/dL (60-115)
--- NOTE | 2024-08-07 16:02 | PC.NURSE ---
patient refused insulin coverage,primary RN Carlos notified
[2024-08-07 19:34] VITALS: BP 118/63; PULSE 72; RESP 20; TEMP 36.2; O2SAT 98
[2024-08-07 19:42] LABS: Glucose, Whole Blood 230 mg/dL (60-115)
[2024-08-07] MEDS: Melatonin 3 MG TABLET 6 MG PO (20:17)
[2024-08-07] MEDS: Levothyroxine Sodium 150 MCG TABLET PO (20:18)
[2024-08-08 04:00] VITALS: BP 98/53; PULSE 79; RESP 18; TEMP 36.6; O2SAT 96
[2024-08-08] MEDS: Piperacillin Sodium/Tazobactam 3.375 GM in 0.9 % Sodium Chloride 50 ML IV ×4 (06:06→23:37)
[2024-08-08 06:42] LABS: Anion Gap 12 (12-20); Blood Urea Nitrogen 12 mg/dL (9-16); Carbon Dioxide 27 mmol/L (22-29); Chloride 103 mmol/L (96-108); Creatinine Clr Calc Pharmacy 83.6; Estimated Glomerular Filt Rate > 60; Glucose Random 132 mg/dL (60-115); Potassium 4.4 mmol/L (3.3-5.1); Sodium 138 mmol/L (135-145)
[2024-08-08 07:17] VITALS: BP 118/69; PULSE 78; RESP 16; TEMP 36.3; O2SAT 99
[2024-08-08 07:37] LABS: Glucose, Whole Blood 145 mg/dL (60-115)
[2024-08-08] MEDS: glipiZIDE XL 5 MG TAB.ER.24 PO (08:20)
[2024-08-08] MEDS: lisinopriL 5 MG TABLET PO (08:21)
[2024-08-08] MEDS: Atorvastatin Calcium 10 MG TABLET PO (08:21)
[2024-08-08] MEDS: diazePAM 5 MG TABLET 10 MG PO ×3 (08:21→19:26)
[2024-08-08] MEDS: 0.9 % Sodium Chloride Flush 3 ML SYRINGE IVFLUSH ×2 (08:22→15:06)
[2024-08-08 10:39] LABS: Vancomycin Random 11.3 mcg/mL (15-20)
--- NOTE | 2024-08-08 10:45 | HE.PHANOTE ---
RE VANCO DOSE INCREASING DOSE TO 1000 MG Q12 ONLY SEEING TROUGH 11.3 AND EXPECTED AUC 416 WITH CURRENT DOSING. NEW DOSE SHOULD ACHIEVE TROUGH 16.8 AND AUC 544. WILL RECHECK TROUGH 08/09 @1000.
[2024-08-08 11:04] LABS: Glucose, Whole Blood 168 mg/dL (60-115)
--- NOTE | 2024-08-08 12:05 | HO.PM.IMPN ---
Subjective Subjective Date of Service: 08/08/24 Interval History: seen and evaluated this morning feels better overall refusing blood checks and Insulin but blood sugar fairly controlled No other overnight events Review of Systems Review of Systems: Yes all other systems are reviewed and are negative Physical Exam Vital Signs: Vital Signs: Last Vital Signs Temp 97.4 F 08/08/24 07:17 Pulse 78 08/08/24 07:17 Resp 16 08/08/24 07:17 BP 118/69 08/08/24 07:17 Pulse Ox 99 08/08/24 07:17 O2 Del Method Room Air 08/08/24 07:17 BMI result Body Mass Index 40.1 Const: Other: Constitutional : Awake, interactive, not in distress Neck : Normal inspection, Supple Cardiovascular : RRR, no JVP, no lower extremity edema Respiratory : good bilateral air entry, no crackles, wheezes or rhonchi Gastrointestinal: soft, lax, Normal bowel sounds, Non tender Skin : Warm, Dry, left foot less swollen with overlying erythema up to anterior guy. warm with mild tenderness. exposed Left 4th toe dorsal side covered with dressing Neurological : Alert & oriented x3, No focal deficit Objective Data Active Medications Atorvastatin Calcium (Atorvastatin Calcium 10 Mg Tablet) 10 mg PO DAILY [facility] Last Admin: 08/08/24 08:21 Dose: 10 mg Documented By: DANILO Calcium Carbonate (Calcium Carbonate 750 Mg Tab.Chew) 750 mg PO Q4H PRN PRN Reason: Heartburn Diazepam (Diazepam 5 Mg Tablet) 10 mg PO TID [facility] Last Admin: 08/08/24 08:21 Dose: 10 mg Documented By: DANILO Enoxaparin Sodium (Enoxaparin Sodium 40 Mg/0.4 Ml Syringe) 40 mg SUBCUT Q24H [facility] Last Admin: 08/08/24 08:22 Dose: Not Given Documented By: DANILO Non-Admin Reason: Patient Refused Glipizide (Glipizide Xl 5 Mg Tab.Er.24) 5 mg PO DAILY [facility] Last Admin: 08/08/24 08:20 Dose: 5 mg Documented By: DANILO Glucose (Glucose Gel 15 Gm Gel..Gram.) 15 gm PO Q15M PRN; Protocol PRN Reason: per Hypoglycemia Standing Ord. Hydromorphone HCl (Hydromorphone Hcl 4 Mg Tablet) 4 mg PO TID [facility] Last Admin: 08/08/24 10:18 Dose: Not Given Documented By: DANILO Non-Admin Reason: GIVEN 1 TIME DOSE AT 0638. Dextrose (D10) 250 mls @ 750 mls/hr IV Q15M PRN; Protocol PRN Reason: per Hypoglycemia Standing Ord. Piperacillin Sod/Tazobactam (Sod 3.375 gm/ Sodium Chloride) 50 mls @ 100 mls/hr IV Q6H [facility] Last Infusion: 08/08/24 06:38 Dose: Infused Documented By: JENNIFER Vancomycin HCl 1,000 mg/ (Sodium Chloride) 270 mls @ 270 mls/hr IV Q12H [facility] Insulin Human Lispro (Insulin Lispro 100 Unit/Ml 3 Ml Vial) 0 unit SUBCUT QIDACHS [facility]; Protocol Last Admin: 08/08/24 11:48 Dose: Not Given Documented By: DANILO Non-Admin Reason: Patient Refused Levothyroxine Sodium (Levothyroxine Sodium 150 Mcg Tablet) 150 mcg PO BEDTIME [facility] Last Admin: 08/07/24 20:18 Dose: 150 mcg Documented By: JENNIFER Lisinopril (Lisinopril 5 Mg Tablet) 5 mg PO DAILY [facility]; Protocol Last Admin: 08/08/24 08:21 Dose: 5 mg Documented By: DANILO Magnesium Hydroxide (Milk Of Magnesia 30 Ml Oral.Susp) 30 ml PO DAILY PRN PRN Reason: Constipation Melatonin (Melatonin 3 Mg Tablet) 6 mg PO BEDTIME PRN PRN Reason: Insomnia Last Admin: 08/07/24 20:17 Dose: 6 mg Documented By: JENNIFER Non-Formulary Medication (Semaglutide [Rybelsus]) 3 mg PO DAILY [facility] Pharmacy Consult (Consult Rx Vancomycin Dosing) 1 each MISCELLANE DAILY PRN PRN Reason: Consult order Sodium Chloride (0.9 % Sodium Chloride Flush 3 Ml Syringe) 3 ml IVFLUSH QSHIFT [facility] Last Admin: 08/08/24 08:22 Dose: 3 ml Documented By: DANILO Zolpidem Tartrate (Zolpidem Tartrate 5 Mg Tablet) 5 mg PO BEDTIME PRN PRN Reason: Insomnia Labs 08/07/24 05:39 08/08/24 05:53 Labs: Laboratory Results - last 24 hr 08/07/24 08/07/24 08/08/24 15:58 19:37 05:53 Hold Purple Top SEE NOTE Anion Gap 12 Estim Creat Clear Calc 83.6 Estimated GFR > 60 POC Glucose 190 H 230 H Random Glucose 132 H Calcium 9.0 Random Vancomycin 08/08/24 08/08/24 08/08/24 07:34 09:58 11:01 Hold Purple Top Anion Gap Estim Creat Clear Calc Estimated GFR POC Glucose 145 H 168 H Random Glucose Calcium Random Vancomycin 11.3 L Microbiology Microbiology Results: Microbiology 08/06/24 22:41 Blood Culture - Preliminary Blood - Venous No growth after 24 hours. 08/06/24 22:28 Blood Culture - Preliminary Blood - Venous No growth after 24 hours. Assessment and Plan (1) PAD (peripheral artery disease): Status: Acute (2) Uncontrolled diabetes mellitus with hyperglycemia, without long-term current use of insulin: Status: Acute (3) Diabetic foot infection: Status: Acute (4) Diabetes mellitus: Status: Acute (5) Acute osteomyelitis of toe of left foot: Status: Acute Plan 59F PMH DM, morbid obesity, chronic pain/ back spasms, hypothryoid, hld presented with lle erythema Left lower extremity cellulitis and concern for left 4th toe osteomyelitis due to diabetes XR Foot suggetive of Osteomyelitis Continue IV vancomycin Zosyn pending final cultures arterial duplex not showing any significant stenosis, Vascular surgery following Follow-up cultures ID eval, 6 weeks IV Daptomycin\Ertapenem follow Vancomycin trough PICC line Saturday Morbid obesity Weight loss recommended [place]rolled type 2 Diabetes Refusing Insulin sliding scale Lisinopril for proteinuria Check HbA1c of 9.9 restart GLipizide and Semaglutide To speak again to her about the need of better control and Insulin usage while inpatient. Chronic pain/back spasms Continue hydromorphone and Valium Hypothyroid Continue levothyroxine Hyperlipidemia continue statin DVT prophylaxis with Lovenox Full Code Patient with significant cellulitis and osteomyelitis requiring IV antibiotics at risk for further decompensation due to diabetes, therefore expected require overnight inpatient stay Quality Stroke Does the patient have a stroke diagnosis?: No VTE Prior VTE?: No VTE Risk Level:: Medical - moderate - high VTE Device Contraindication: Treatment Not Indicated VTE Drug Contraindication: N/A - Med Ordered
[2024-08-08] MEDS: vancomycin HCL 1,000 MG in 0.9 % Sodium Chloride 250 ML 270 MG IV (13:15)
[2024-08-08 14:59] VITALS: BP 98/55; PULSE 85; RESP 18; TEMP 36.2; O2SAT 98
[2024-08-08 16:19] LABS: Glucose, Whole Blood 143 mg/dL (60-115)
[2024-08-08 19:27] VITALS: BP 112/68; PULSE 85; RESP 18; TEMP 36.6; O2SAT 96
[2024-08-08] MEDS: Levothyroxine Sodium 150 MCG TABLET PO (19:27)
[2024-08-08 20:25] LABS: Glucose, Whole Blood 148 mg/dL (60-115)
--- NOTE | 2024-08-08 21:36 | P.CNID_ITS ---
History of Present Illness Data of Consult Service Date: 08/07/24 Requesting physician: Nakul Mendoza Primary Care Provider: Unknown Physician HPI Reason for consult: left fourth toe OM She presents with left fourth toe redness and swelling going up foot. She had symptoms since felt ill six days ago. She had redness five days ago left fourth toe. She had seen Urgent Care four days ago and received antibiotics. She didnt feel better and came to ER. Review of Systems 2 Review of Systems: Yes all other systems are reviewed and are negative Genitourinary: Genitourinary: Reports no additional female genitourinary complaints Musculoskeletal: Comments: right left fourth toe less erythema Integumentary/Breasts: Comments: neuropathy feet PMFSH Past Medical History Medical History (Updated 08/07/24 @ 11:28 by Terrell Cameron MD) Diabetes mellitus Social History Social History Household Members: Family and Other Household Members Other:: mother Housing: House Do you presently have visiting nurse or other home services: No Patient Tobacco Use Status: Former Tobacco user Substance Use Type: Marijuana service: No Meds Allergies Allergy/AdvReac Type Severity Reaction Status Date / Time oxycodone [From PERCOCET] Allergy Unknown HEADACHE, Verified 08/06/24 23:11 UPSET STOMACH Sulfa (Sulfonamide Allergy Unknown unknown Verified 08/06/24 23:11 Antibiotics) [SULFA (SULFONAMIDE ANTIBIOTICS)] acetaminophen [From VICODIN] AdvReac Unknown HEADACHE, Verified 08/06/24 23:11 UPSET STOMACH cortisone [CORTISONE] AdvReac Unknown flu like Verified 08/06/24 23:11 symptoms hydrocodone [From VICODIN] AdvReac Unknown HEADACHE, Verified 08/06/24 23:11 UPSET STOMACH prednisone [PREDNISONE] AdvReac Unknown flu like Verified 08/06/24 23:11 symptoms Active Medications: Current Medications Atorvastatin Calcium (Atorvastatin Calcium 10 Mg Tablet) 10 mg PO DAILY [facility] Last Admin: 08/08/24 08:21 Dose: 10 mg Calcium Carbonate (Calcium Carbonate 750 Mg Tab.Chew) 750 mg PO Q4H PRN PRN Reason: Heartburn Diazepam (Diazepam 5 Mg Tablet) 10 mg PO TID [facility] Last Admin: 08/08/24 19:26 Dose: 10 mg Enoxaparin Sodium (Enoxaparin Sodium 40 Mg/0.4 Ml Syringe) 40 mg SUBCUT Q24H [facility] Last Admin: 08/08/24 08:22 Dose: Not Given Glipizide (Glipizide Xl 5 Mg Tab.Er.24) 5 mg PO DAILY [facility] Last Admin: 08/08/24 08:20 Dose: 5 mg Glucose (Glucose Gel 15 Gm Gel..Gram.) 15 gm PO Q15M PRN; Protocol PRN Reason: per Hypoglycemia Standing Ord. Hydromorphone HCl (Hydromorphone Hcl 4 Mg Tablet) 4 mg PO TID [facility] Last Admin: 08/08/24 19:27 Dose: 4 mg Dextrose (D10) 250 mls @ 750 mls/hr IV Q15M PRN; Protocol PRN Reason: per Hypoglycemia Standing Ord. Piperacillin Sod/Tazobactam (Sod 3.375 gm/ Sodium Chloride) 50 mls @ 100 mls/hr IV Q6H [facility] Last Infusion: 08/08/24 18:39 Dose: Infused Vancomycin HCl 1,000 mg/ (Sodium Chloride) 270 mls @ 270 mls/hr IV Q12H [facility] Last Infusion: 08/08/24 14:19 Dose: Infused Insulin Human Lispro (Insulin Lispro 100 Unit/Ml 3 Ml Vial) 0 unit SUBCUT QIDACHS [facility]; Protocol Last Admin: 08/08/24 19:28 Dose: Not Given Levothyroxine Sodium (Levothyroxine Sodium 150 Mcg Tablet) 150 mcg PO BEDTIME [facility] Last Admin: 08/08/24 19:27 Dose: 150 mcg Lisinopril (Lisinopril 5 Mg Tablet) 5 mg PO DAILY [facility]; Protocol Last Admin: 08/08/24 08:21 Dose: 5 mg Magnesium Hydroxide (Milk Of Magnesia 30 Ml Oral.Susp) 30 ml PO DAILY PRN PRN Reason: Constipation Melatonin (Melatonin 3 Mg Tablet) 6 mg PO BEDTIME PRN PRN Reason: Insomnia Last Admin: 08/07/24 20:17 Dose: 6 mg Non-Formulary Medication (Semaglutide [Rybelsus]) 3 mg PO DAILY [facility] Pharmacy Consult (Consult Rx Vancomycin Dosing) 1 each MISCELLANE DAILY PRN PRN Reason: Consult order Sodium Chloride (0.9 % Sodium Chloride Flush 3 Ml Syringe) 3 ml IVFLUSH QSHIFT [facility] Last Admin: 08/08/24 15:06 Dose: 3 ml Zolpidem Tartrate (Zolpidem Tartrate 5 Mg Tablet) 5 mg PO BEDTIME PRN PRN Reason: Insomnia Home Medications ?Medication ?Instructions ?Recorded ?Confirmed ?Last Taken ?Type atorvastatin 10 mg tablet 10 mg PO DAILY 08/06/24 08/07/24 08/06/24 08:30 History diazepam 10 mg tablet 10 mg PO TID 08/06/24 08/07/24 08/06/24 08:30 History glipizide 10 mg tablet, extended 10 mg PO DAILY 08/06/24 08/07/24 08/06/24 08:30 History release 24 hr hydromorphone 4 mg tablet 4 mg PO TID 08/06/24 08/07/24 08/06/24 08:30 History levothyroxine 150 mcg tablet 150 mcg PO DAILY@199908/06/24 08/07/24 Unknown History lisinopril 5 mg tablet 5 mg PO DAILY 08/06/24 08/07/24 08/06/24 08:30 History semaglutide 3 mg tablet (Rybelsus) 3 mg PO DAILY 08/06/24 08/07/24 08/06/24 08:30 History diphenhydramine 25 2 tab PO BEDTIME PRN Pain 08/07/24 08/07/24 08/05/24 History mg-acetaminophen 500 mg tablet (Acetaminophen PM) doxycycline monohydrate 100 mg 100 mg PO BID 08/07/24 08/07/24 08/06/24 08:30 History capsule Physical Exam 2 Vital Signs: Vital Signs: Last Vital Signs Temp 97.8 F 08/08/24 19:27 Pulse 85 08/08/24 19:27 Resp 18 08/08/24 19:27 BP 112/68 08/08/24 19:27 Pulse Ox 96 08/08/24 19:27 O2 Del Method Room Air 08/08/24 19:27 BMI result Body Mass Index 40.1 Const: General: cooperative HEENT: Head: Yes normal to inspection Face and sinus: Yes normal facial exam Mouth: Normal oral and palatal mucosa present Teeth and gingiva: d entition normal Eyes: General: appearance normal, both eyes and all related structures P upils: Equal, round and reactive pupils present Resp: Effort & Inspection: normal respiratory effort Cardio: Rate: regular rate Rhythm: regular rhythm GI: Palpation (GI): Soft to palpation and nontender : General: Yes no CVA tenderness Back/Spine/Pelvis: Back: no CVA tenderness Skin: General skin exam: no rashes or lesions noted Neuro: Other: neuropathy feet left fourth toe reddened and slight up foot General: moves all extremities Cranial nerves: Yes Equal, round and reactive pupils present Extrem: General: Yes normal to inspection Psych: Appearance: grossly normal Results Labs 08/07/24 05:39 08/08/24 05:53 Labs: BMP 08/08/24 05:53 Sodium 138 Potassium 4.4 Chloride 103 Carbon Dioxide 27 BUN 12 Creatinine 0.87 Calcium 9.0 Microbiology Microbiology Results: Microbiology 08/07/24 Unknown Urine clean catch - Clean Catch Midstream Urine Culture - Final Strep agalactiae (Grp B) 08/06/24 22:41 Blood - Venous Blood Culture - Preliminary No growth after 24 hours. 08/06/24 22:28 Blood - Venous Blood Culture - Preliminary No growth after 24 hours. Assessment and Plan (1) PAD (peripheral artery disease): Status: Acute (2) Diabetic foot infection: Status: Acute (3) Acute osteomyelitis of toe of left foot: Status: Acute Plan She has OM left fourth toe She has no specific organisms Would see Vascular followup. 6 weeks IV Ertapenem with weekly CBC and creatinine. See followup in office.
[2024-08-08] MEDS: Melatonin 3 MG TABLET 6 MG PO (21:38)
[2024-08-09] MEDS: vancomycin HCL 1,000 MG in 0.9 % Sodium Chloride 250 ML 270 MG IV (00:07)
[2024-08-09] MEDS: 0.9 % Sodium Chloride Flush 3 ML SYRINGE IVFLUSH ×4 (00:08→19:51)
[2024-08-09 04:00] VITALS: BP 94/52; PULSE 71; RESP 16; TEMP 36.6; O2SAT 93
[2024-08-09 06:18] LABS: Anion Gap 13 (12-20); Blood Urea Nitrogen 10 mg/dL (9-16); Calcium 9.3 mg/dL (8.4-10.2); Carbon Dioxide 25 mmol/L (22-29); Chloride 105 mmol/L (96-108); Creatinine Clr Calc Pharmacy 92.1; Estimated Glomerular Filt Rate > 60; Glucose Random 128 mg/dL (60-115); Potassium 4.3 mmol/L (3.3-5.1); Sodium 139 mmol/L (135-145)
[2024-08-09] MEDS: Piperacillin Sodium/Tazobactam 3.375 GM in 0.9 % Sodium Chloride 50 ML IV ×4 (06:20→23:06)
[2024-08-09 07:07] VITALS: BP 92/52; PULSE 74; RESP 16; TEMP 36.2; O2SAT 94
[2024-08-09 07:21] LABS: Glucose, Whole Blood 143 mg/dL (60-115)
[2024-08-09] MEDS: glipiZIDE XL 5 MG TAB.ER.24 PO (08:39)
[2024-08-09] MEDS: Atorvastatin Calcium 10 MG TABLET PO (08:39)
[2024-08-09] MEDS: diazePAM 5 MG TABLET 10 MG PO ×3 (08:39→19:49)
[2024-08-09 10:53] LABS: Vancomycin Random 11.8 mcg/mL (15-20)
--- NOTE | 2024-08-09 11:06 | HE.PHANOTE ---
RE VANCO DOSING: RENAL FUNCTION CONTINUING TO IMPROVE. SCR TODAY IS 0.79 AND CRCL IS 92.1. WILL INCREASE DOSE AGAIN TO 1250 Q12 WITH EXPECTED AUC 569 AND TROUGH 16.5 WITH THIS DOSE. RECHECK LEVEL AGAIN 08/10/24 @ 1000 TO ENSURE SAFETY AND EFFICACY.
[2024-08-09 11:09] LABS: Glucose, Whole Blood 156 mg/dL (60-115)
[2024-08-09] MEDS: vancomycin HCL 1,250 MG in 0.9 % Sodium Chloride 250 ML 166.67 MG IV ×2 (12:21→23:39)
--- NOTE | 2024-08-09 13:04 | P.PNIM_ITS ---
Subjective Subjective Date of Service: 08/09/24 Interval History: seen and evaluated this morning feels better overall refusing blood checks and Insulin but blood sugar fairly controlled PICC tomorrow No other overnight events Review of Systems Review of Systems: Yes all other systems are reviewed and are negative Physical Exam 2 Vital Signs: Vital Signs: Last Vital Signs Temp 97.1 F 08/09/24 07:07 Pulse 74 08/09/24 07:07 Resp 16 08/09/24 07:07 BP 92/52 L 08/09/24 07:07 Pulse Ox 94 08/09/24 07:07 O2 Del Method Room Air 08/09/24 07:07 BMI result Body Mass Index 40.1 Const: Other: Constitutional : Awake, interactive, not in distress Neck : Normal inspection, Supple Cardiovascular : RRR, no JVP, no lower extremity edema Respiratory : good bilateral air entry, no crackles, wheezes or rhonchi Gastrointestinal: soft, lax, Normal bowel sounds, Non tender Skin : Warm, Dry, left foot less swollen with overlying erythema up to anterior guy. warm with mild tenderness. exposed Left 4th toe dorsal side covered with dressing Neurological : Alert & oriented x3, No focal deficit Objective Data Active Medications Atorvastatin Calcium (Atorvastatin Calcium 10 Mg Tablet) 10 mg PO DAILY [facility] Last Admin: 08/09/24 08:39 Dose: 10 mg Documented By: DANILO Calcium Carbonate (Calcium Carbonate 750 Mg Tab.Chew) 750 mg PO Q4H PRN PRN Reason: Heartburn Diazepam (Diazepam 5 Mg Tablet) 10 mg PO TID [facility] Last Admin: 08/09/24 08:39 Dose: 10 mg Documented By: DANILO Enoxaparin Sodium (Enoxaparin Sodium 40 Mg/0.4 Ml Syringe) 40 mg SUBCUT Q24H [facility] Last Admin: 08/09/24 08:40 Dose: Not Given Documented By: DANILO Non-Admin Reason: Patient Refused Glipizide (Glipizide Xl 5 Mg Tab.Er.24) 5 mg PO DAILY [facility] Last Admin: 08/09/24 08:39 Dose: 5 mg Documented By: DANILO Glucose (Glucose Gel 15 Gm Gel..Gram.) 15 gm PO Q15M PRN; Protocol PRN Reason: per Hypoglycemia Standing Ord. Hydromorphone HCl (Hydromorphone Hcl 4 Mg Tablet) 4 mg PO TID [facility] Last Admin: 08/09/24 08:40 Dose: 4 mg Documented By: DANILO Dextrose (D10) 250 mls @ 750 mls/hr IV Q15M PRN; Protocol PRN Reason: per Hypoglycemia Standing Ord. Piperacillin Sod/Tazobactam (Sod 3.375 gm/ Sodium Chloride) 50 mls @ 100 mls/hr IV Q6H [facility] Last Infusion: 08/09/24 12:05 Dose: Infused Documented By: DANILO Vancomycin HCl 1,250 mg/ (Sodium Chloride) 250 mls @ 166.667 mls/hr IV Q12H [facility] Last Admin: 08/09/24 12:21 Dose: 166.67 mls/hr Documented By: DANILO Insulin Human Lispro (Insulin Lispro 100 Unit/Ml 3 Ml Vial) 0 unit SUBCUT QIDACHS [facility]; Protocol Last Admin: 08/09/24 12:05 Dose: Not Given Documented By: DANILO Non-Admin Reason: Patient Refused Levothyroxine Sodium (Levothyroxine Sodium 150 Mcg Tablet) 150 mcg PO BEDTIME [facility] Last Admin: 08/08/24 19:27 Dose: 150 mcg Documented By: JENNIFER Lisinopril (Lisinopril 5 Mg Tablet) 5 mg PO DAILY [facility]; Protocol Last Admin: 08/08/24 08:21 Dose: 5 mg Documented By: DANILO Magnesium Hydroxide (Milk Of Magnesia 30 Ml Oral.Susp) 30 ml PO DAILY PRN PRN Reason: Constipation Melatonin (Melatonin 3 Mg Tablet) 6 mg PO BEDTIME PRN PRN Reason: Insomnia Last Admin: 08/08/24 21:38 Dose: 6 mg Documented By: JENNIFER Non-Formulary Medication (Semaglutide [Rybelsus]) 3 mg PO DAILY [facility] Pharmacy Consult (Consult Rx Vancomycin Dosing) 1 each MISCELLANE DAILY PRN PRN Reason: Consult order Sodium Chloride (0.9 % Sodium Chloride Flush 3 Ml Syringe) 3 ml IVFLUSH QSHIFT [facility] Last Admin: 08/09/24 08:40 Dose: 3 ml Documented By: DANILO Zolpidem Tartrate (Zolpidem Tartrate 5 Mg Tablet) 5 mg PO BEDTIME PRN PRN Reason: Insomnia Labs 09/06/24 05:39 08/09/24 05:54 Labs: Laboratory Results - last 24 hr 08/08/24 08/08/24 08/09/24 16:12 20:20 05:54 Hold Purple Top SEE NOTE Anion Gap 13 Estim Creat Clear Calc 92.1 Estimated GFR > 60 POC Glucose 143 H 148 H Random Glucose 128 H Calcium 9.3 Random Vancomycin 08/09/24 08/09/24 08/09/24 07:17 10:07 11:04 Hold Purple Top Anion Gap Estim Creat Clear Calc Estimated GFR POC Glucose 143 H 156 H Random Glucose Calcium Random Vancomycin 11.8 L Microbiology Microbiology Results: Microbiology 08/06/24 22:41 Blood Culture - Preliminary Blood - Venous No growth after 48 hours. 08/06/24 22:28 Blood Culture - Preliminary Blood - Venous No growth after 48 hours. 08/07/24 Unknown Urine Culture - Final Urine clean catch - Clean Catch Midstream Strep agalactiae (Grp B) Assessment and Plan (1) Uncontrolled diabetes mellitus with hyperglycemia, without long-term current use of insulin: Status: Acute (2) Diabetic foot infection: Status: Acute (3) Acute osteomyelitis of toe of left foot: Status: Acute Plan 59F PMH DM, morbid obesity, chronic pain/ back spasms, hypothryoid, hld presented with lle erythema Left lower extremity cellulitis and concern for left 4th toe osteomyelitis due to diabetes XR Foot suggetive of Osteomyelitis Continue IV vancomycin Zosyn pending final cultures arterial duplex not showing any significant stenosis, Vascular surgery following Follow-up cultures ID eval, 6 weeks IV Daptomycin\Ertapenem follow Vancomycin trough PICC line Saturday Morbid obesity Weight loss recommended [place]rolled type 2 Diabetes Refusing Insulin sliding scale Lisinopril for proteinuria Check HbA1c of 9.9 restart GLipizide and Semaglutide To speak again to her about the need of better control and Insulin usage while inpatient. Chronic pain/back spasms Continue hydromorphone and Valium Hypothyroid Continue levothyroxine Hyperlipidemia continue statin DVT prophylaxis with Lovenox Full Code Patient with significant cellulitis and osteomyelitis requiring IV antibiotics at risk for further decompensation due to diabetes, therefore expected require overnight inpatient stay Quality Stroke Does the patient have a stroke diagnosis?: No VTE Prior VTE?: No VTE Risk Level:: Medical - moderate - high VTE Device Contraindication: Treatment Not Indicated VTE Drug Contraindication: N/A - Med Ordered
[2024-08-09 15:27] VITALS: BP 106/58; PULSE 77; RESP 16; TEMP 36.4; O2SAT 97
[2024-08-09] MEDS: Furosemide 20 MG/2 ML VIAL 10 MG IVPUSH (15:37)
[2024-08-09 16:09] LABS: Glucose, Whole Blood 166 mg/dL (60-115)
[2024-08-09 19:35] LABS: Glucose, Whole Blood 193 mg/dL (60-115)
[2024-08-09 19:46] VITALS: BP 111/55; PULSE 71; RESP 20; TEMP 36.3; O2SAT 98
[2024-08-09] MEDS: Levothyroxine Sodium 150 MCG TABLET PO (19:50)
[2024-08-09] MEDS: Melatonin 3 MG TABLET 6 MG PO (21:12)
[2024-08-10 03:34] VITALS: BP 115/64; PULSE 76; RESP 20; TEMP 36.3; O2SAT 98
[2024-08-10] MEDS: Piperacillin Sodium/Tazobactam 3.375 GM in 0.9 % Sodium Chloride 50 ML IV (05:09)
[2024-08-10 06:39] LABS: Anion Gap 14 (12-20); Blood Urea Nitrogen 12 mg/dL (9-16); Calcium 9.4 mg/dL (8.4-10.2); Carbon Dioxide 26 mmol/L (22-29); Chloride 104 mmol/L (96-108); Creatinine Clr Calc Pharmacy 88.7; Estimated Glomerular Filt Rate > 60; Glucose Random 134 mg/dL (60-115); Potassium 4.1 mmol/L (3.3-5.1); Sodium 140 mmol/L (135-145)
[2024-08-10 07:14] VITALS: BP 115/60; PULSE 76; RESP 18; TEMP 35.9; O2SAT 96
[2024-08-10 07:26] LABS: Glucose, Whole Blood 149 mg/dL (60-115)
[2024-08-10] MEDS: glipiZIDE XL 5 MG TAB.ER.24 PO (07:55)
[2024-08-10] MEDS: Atorvastatin Calcium 10 MG TABLET PO (07:56)
[2024-08-10] MEDS: diazePAM 5 MG TABLET 10 MG PO ×3 (07:56→21:11)
[2024-08-10 10:50] LABS: Vancomycin Random 16.1 mcg/mL (15-20)
--- NOTE | 2024-08-10 11:01 | HE.PHANOTE ---
Re: Jose Juano Improving renal function. Trough returned at 16.1, pt is therapeutic. Continue current dose of 1250mg q12h, with predicted AUC 590, and predicted trough 17.4. Next trough 08/11 @ 1000.
[2024-08-10 11:03] LABS: Glucose, Whole Blood 167 mg/dL (60-115)
--- NOTE | 2024-08-10 11:29 | MHC.CM.PN ---
Addendum entered by Jayda Yu RN 08/10/24 15:18: Patient will dc home this evening after first dose of ertapenem. Self transport. RN aware. Original Note: Per MD rounds patient awaiting PICC placement and will likely dc later today w/ [facility] and [facility] for IV ertapenem (end date 09/18). Patient aware and will manage the abx independently. Her mother is available to help if needed. CM will continue to follow.
--- NOTE | 2024-08-10 12:36 | PM.DS ---
DS: Providers Provider Date of Service: 08/11/24 Date of admission: 08/07/24 00:00 Date of discharge: 08/11/24 Primary care physician: Unknown Physician Consults: 08/06/24 23:42 Consult to Vascular Surgery Routine Consulting Provider: [facility] Vascular Services Reason for consultation: left 4th toe OM 08/06/24 23:59 Consult to Infectious Diseases Routine Consulting Provider: [facility] Infectious Disease Center Reason for consultation: left 4th toe om, dfu DS: Diagnosis Discharge Diagnosis (1) Uncontrolled diabetes mellitus with hyperglycemia, without long-term current use of insulin: Status: Acute (2) Diabetic foot infection: Status: Acute (3) Acute osteomyelitis of toe of left foot: Status: Acute (4) PAD (peripheral artery disease): Status: Acute (5) Morbid obesity: Status: Acute DS: Summary Hospital Course Hospital Course: Admission note HPI 59F PMH DM, morbid obesity, chronic pain/ back spasms, hypothryoid, hld presented with lle erythema. Patient states she woke up about 4 days prior to presentation with blood blister on left 4th toe. Does not remember any trauma. Denies significant neuropathy to left foot. Blister then ruptured and patient started noticing increased swelling and erythema of foot and lower leg. Denies any fever or chills. In ED foot x-ray with concern for left 4th toe osteomyelitis, duplex negative for DVT. Hospital course # Left lower extremity cellulitis with left 4th toe osteomyelitis due to unctrolled type 2 diabetes XR Foot suggetive of Osteomyelitis. The patient was started on IV vancomycin Zosyn with good response as erythema and swelling resolved while blood cultures came back negative. arterial duplex not showing any significant stenosis, Vascular surgery following and has no plans for intervention. recommended medical treatment ID evaluated the patient and recommended 6 weeks IV Ertapenem with a plan to follow as outpatient. PICC line placed. to be followed by [facility] at home. To do Xeroform with dry dressing at home and follow with PCP. # Morbid obesity, Weight loss recommended # Unctonrolled type 2 Diabetes The patient is refusing Insulin sliding scale and injections in general. Her HbA1c of 9.9. Will continue GLipizide and Semaglutide on discharge while starting her on Metformin 850 mg bid with a plan to follow with PCP for further management and better control. Discharge plan Continue Ertapenem as prescribed to finish 6 weeks of IV antibiotics Start Metformin for better sugar control Monitor blood sugar and report 1 week readings to PCP Wound care, follow with PCP after finishing treatment for evaluation Time Attestation Discharge Coordination Time (in mins): 43 Quality: Safe Use of Opioids Does Pt have an Active Cancer Diagnosis on the Problem List?: No Quality: Stroke Does the patient have a stroke diagnosis?: No Physical Exam Vital Signs: Vital Signs: Last Vital Signs Temp 96.6 F L 08/10/24 07:14 Pulse 76 08/10/24 07:14 Resp 18 08/10/24 07:14 BP 115/60 08/10/24 07:14 Pulse Ox 96 08/10/24 07:14 O2 Del Method Room Air 08/10/24 07:14 BMI result Body Mass Index 40.1 Const: Other: Constitutional : Awake, interactive, not in distress Neck : Normal inspection, Supple Cardiovascular : RRR, no JVP, no lower extremity edema Respiratory : good bilateral air entry, no crackles, wheezes or rhonchi Gastrointestinal: soft, lax, Normal bowel sounds, Non tender Skin : Warm, Dry, left foot swelling and erythema resolving. exposed Left 4th toe dorsal side covered with dressing Neurological : Alert & oriented x3, No focal deficit DS: Data Data Completed and Pending Labs on day of discharge: Laboratory Results - last 24 hr 08/09/24 08/09/24 08/10/24 16:05 19:27 05:27 Hold Purple Top SEE NOTE Sodium 140 Potassium 4.1 Chloride 104 Carbon Dioxide 26 Anion Gap 14 BUN 12 Creatinine 0.82 Estim Creat Clear Calc 88.7 Estimated GFR > 60 POC Glucose 166 H 193 H Random Glucose 134 H Calcium 9.4 Random Vancomycin 08/10/24 08/10/24 08/10/24 07:13 10:16 10:55 Hold Purple Top Sodium Potassium Chloride Carbon Dioxide Anion Gap BUN Creatinine Estim Creat Clear Calc Estimated GFR POC Glucose 149 H 167 H Random Glucose Calcium Random Vancomycin 16.1 Preliminary micro results at discharge 08/06/24 22:41 Blood Culture - Preliminary Blood - Venous No growth after 48 hours. 08/06/24 22:28 Blood Culture - Preliminary Blood - Venous No growth after 48 hours. Imaging XR FOOT: Radiologist's impression: ITS Impressions Foot X-Ray 08/06/24 16:58 IMPRESSION: Bone destruction of the distal tuft of the distal phalanx of the fourth toe. In an appropriate clinical setting this would be concerning for osteomyelitis. Electronically signed by: Jakob Lopez MD 08/06/2024 06:30 PM EDT RP Venous Duplex 08/06/24 17:30 IMPRESSION: No evidence of deep venous thrombosis involving the left lower extremity. Electronically signed by: Chari Hill MD 08/06/2024 05:51 PM EDT RP Duplex Scan Lower Extremity Artery 08/07/24 08:36 IMPRESSION: No evidence of hemodynamically significant peripheral arterial disease by Doppler criteria. There are high flow monophasic waveforms which are nonspecific but can be seen after exercise, with hyperthermia, and with hyperemia such as cellulitis. Clinical correlation and follow-up are necessary. Morphologically normal, mildly enlarged lymph nodes in the left groin are likely reactive. Clinical correlation and follow-up are necessary. Electronically signed by: Andrew Arguelles MD 08/07/2024 10:18 AM EDT Discharge Plan Discharge Anticipated Discharge Date/Time: 08/10/24 12:31 Patient Disposition: Home Health Service Discharge Diagnosis: Osteomyelitis 4th toe Left Referrals: [facility] [Other] - 1 Week ([facility] will deliver your IV antibiotics) [facility] [Outside] - 1 Day ([facility] will call you to schedule nursing visits) Physician,Javier J [Primary Care Provider] - 1 Week Discharge Medications: New ertapenem 1 gram recon soln 1 g IV Q24H Qty: 23 0RF metformin 850 mg tablet 850 mg PO BIDWMEAL Qty: 180 0RF Continued atorvastatin 10 mg tablet 10 mg PO DAILY glipizide 10 mg tablet extended release 24hr 10 mg PO DAILY levothyroxine 150 mcg tablet 150 mcg PO DAILY@2000 lisinopril 5 mg tablet 5 mg PO DAILY diazepam 10 mg tablet 10 mg PO TID Rybelsus 3 mg tablet 3 mg PO DAILY diphenhydramine-acetaminophen [Acetaminophen PM] 25-500 mg Tablet 2 tab PO BEDTIME PRN (Reason: Pain) hydromorphone 4 mg tablet 4 mg PO TID Qty: 21 0RF Discontinued doxycycline monohydrate 100 mg capsule 100 mg PO BID Discharge Orders: Discharge Order (Routine); Ordered 08/11/24 Ordered By: Nakul Mendoza Diet: Diabetic diet Activity on Discharge: As tolerated Stand Alone Forms: Patient Portal Discharge page Print Language: Andorran Care Plan Goals: Continue Ertapenem as prescribed to finish 6 weeks of IV antibiotics Start Metformin for better sugar control Monitor blood sugar and report 1 week readings to PCP Wound care, follow with PCP after finishing treatment for evaluation Health Concerns: Read below Plan of Treatment: Read below Assessment: Read below
--- NOTE | 2024-08-10 12:57 | P.PNVS_ITS ---
Subjective Subjective Date of Service: 08/10/24 Patient reports: no new complaints and feels better Interval history: Patient is seen and examined. No significant events over the past weekend. Reports her left leg is doing significantly better. She is ambulating and and wants to take a shower. Than that no other events. Anxious for discharge Physical Exam Vital Signs: Vital Signs: Last Vital Signs Temp 96.6 F L 08/10/24 07:14 Pulse 76 08/10/24 07:14 Resp 18 08/10/24 07:14 BP 115/60 08/10/24 07:14 Pulse Ox 96 08/10/24 07:14 O2 Del Method Room Air 08/10/24 07:14 BMI result Body Mass Index 40.1 Const: General: cooperative, healthy appearing and comfortable Orientation/consciousness: oriented to person, oriented to place and oriented to time HEENT: Head: Yes normal to inspection Neck: Neck: Yes normal visual inspection Carotids: no bruits Chest: Chest palpation & inspection: normal inspection of the chest Resp: Effort & Inspection: normal respiratory effort and able to speak in complete sentences Auscultation: clear to auscultation bilaterally, no crackles, no rales, no rhonchi and no wheezes Cardio: Rate: regular rate Rhythm: regular rhythm Heart sounds: S1 normal heart sound present and S2 normal heart sound present Bruits: no carotid bruits Peripheral pulses: Peripheral pulses 2+ throughout GI: Inspection: Yes normal to inspection Skin: Other: Left 4th toe nonhealing ulcer. Appears fairly superficial at the current time. Cellulitis significantly improved Wounds: no wounds Hair: normal Neuro: General: oriented to person, oriented to place and oriented to time Cranial nerves: Yes CN's II-XII intact bilaterally and Yes Normal hearing present Cognition (Neuro): normal cognition Motor exam (neuro): 5/5 motor strength present throughout Extrem: Other: venous exam: No significant superficial varicosities or spider telangiectasi as, minimal edema General: No clubbing, No cyanosis and No edema Psych: Appearance: grossly normal Mental Status: mental status grossly normal Speech and movement: Normal speech and movement present Progress Note: A&P Assessment and plan (1) PAD (peripheral artery disease): Status: Acute Assessment and Plan: In short doing well with antibiotics. I did appreciate infectious disease note and recommending 6 weeks of IV ertapenem. She can follow up with us as an outpatient in terms of the wound. Should there be any interval issues happy to see her back. Thank you for allowing us to assist in her care. If there are any questions or concerns please do not hesitate to contact us. Time Spent With Patient Time: Total time managing care of this patient today ____ minutes. Procedures Date of Service Date of Service: 08/10/24 Quality Stroke Does the patient have a stroke diagnosis?: No VTE Prior VTE?: No VTE Risk Level:: Medical - moderate - high VTE Device Contraindication: Treatment Not Indicated VTE Drug Contraindication: N/A - Med Ordered
--- NOTE | 2024-08-10 15:27 | P.F2F_ITS ---
Service Date Service Date: 08/10/24 Encounter Date of encounter: 08/10/24 Reasons for Services Signs and symptoms assessed: IV antibiotics Wound care Reason for longterm: wound care (Xeroform with dry dressing every 2 days by RN. report to PCP. ) Homebound: Leaving the home is medically contraindicated at this time without the asist of a device and/or another person due th the listed conditions above and below. Reason homebound: unable to drive Certification: Based on the above findings, I certify that this patient is confined to the home and needs intermittent longterm care, physical therapy and/or speech therapy, or continues to need occupational therapy. The patient is under my care, and I have initiated the establishment of the plan of care. The patient will be followed by a physician who will periodically review the plan of care. Time Spent With Patient Time: Total time managing care of this patient today ____ minutes.
--- NOTE | 2024-08-10 16:06 | P.CDIM_ITS ---
PROVIDER RESPONSE TEXT: To clarify, the appropriate diagnosis supported by the clinical indicators: Acute QUERY TEXT: PHYSICIAN'S DOCUMENTATION REQUEST Date of Query: 08/10/2024 07:51 AM EDT Patient Name: Shona Montoya Admit Date: 08/07/2024 Dear Nakul Mendoza MD, A review of the medical record indicates additional documentation may be needed. Please review below and update the documentation accordingly. Clinical Indicators: Plan - 08/09/24 - Left lower extremity cellulitis and concern for left 4th osteomyelitis due to diabete s. XR foot suggestive of Osteomyelitis Continue IV Vancomycin Zosyn pending final cultures. Clarify which of the following accurately represents the acuity of the Osteomyelitis within the body of the Plan: Possible options might include: Acute Acute on chronic Other (explain) Clinically unable to determine (explain) Thank you, Anaid Orta, CCS, CDIS Use of terms such as suspected, likely, concern for, or probable (associated with a specific diagnosi s that is being evaluated, monitored, or treated as if it exists) are acceptable and can be coded in the inpatient se tting, when documented at the time of discharge. Please use your independent medical judgment in providing your response. THIS QUERY IS PART OF THE PERMANENT MEDICAL RECORD
--- NOTE | 2024-08-10 16:26 | P.PNIM_ITS ---
Subjective Subjective Date of Service: 08/10/24 Interval History: seen and evaluated this morning feels better overall Failed PICC today, will try again tomorrow No other overnight events Review of Systems Review of Systems: Yes all other systems are reviewed and are negative Physical Exam 2 Vital Signs: Vital Signs: Last Vital Signs Temp 96.6 F L 08/10/24 07:14 Pulse 76 08/10/24 07:14 Resp 18 08/10/24 07:14 BP 115/60 08/10/24 07:14 Pulse Ox 96 08/10/24 07:14 O2 Del Method Room Air 08/10/24 07:14 BMI result Body Mass Index 40.1 Const: Other: Constitutional : Awake, interactive, not in distress Neck : Normal inspection, Supple Cardiovascular : RRR, no JVP, no lower extremity edema Respiratory : good bilateral air entry, no crackles, wheezes or rhonchi Gastrointestinal: soft, lax, Normal bowel sounds, Non tender Skin : Warm, Dry, left foot swelling and erythema resolving. exposed Left 4th toe dorsal side covered with dressing Neurological : Alert & oriented x3, No focal deficit Objective Data Active Medications Atorvastatin Calcium (Atorvastatin Calcium 10 Mg Tablet) 10 mg PO DAILY [facility] Last Admin: 08/10/24 07:56 Dose: 10 mg Documented By: WATSON Calcium Carbonate (Calcium Carbonate 750 Mg Tab.Chew) 750 mg PO Q4H PRN PRN Reason: Heartburn Diazepam (Diazepam 5 Mg Tablet) 10 mg PO TID [facility] Last Admin: 08/10/24 14:18 Dose: 10 mg Documented By: WATSON Enoxaparin Sodium (Enoxaparin Sodium 40 Mg/0.4 Ml Syringe) 40 mg SUBCUT Q24H [facility] Last Admin: 08/10/24 07:58 Dose: Not Given Documented By: WATSON Non-Admin Reason: Patient Refused Glipizide (Glipizide Xl 5 Mg Tab.Er.24) 5 mg PO DAILY [facility] Last Admin: 08/10/24 07:55 Dose: 5 mg Documented By: WATSON Glucose (Glucose Gel 15 Gm Gel..Gram.) 15 gm PO Q15M PRN; Protocol PRN Reason: per Hypoglycemia Standing Ord. Hydromorphone HCl (Hydromorphone Hcl 4 Mg Tablet) 4 mg PO TID [facility] Last Admin: 08/10/24 14:19 Dose: 4 mg Documented By: WATSON Dextrose (D10) 250 mls @ 750 mls/hr IV Q15M PRN; Protocol PRN Reason: per Hypoglycemia Standing Ord. Insulin Human Lispro (Insulin Lispro 100 Unit/Ml 3 Ml Vial) 0 unit SUBCUT QIDACHS [facility]; Protocol Last Admin: 08/10/24 12:26 Dose: Not Given Documented By: WATSON Non-Admin Reason: Patient Refused Levothyroxine Sodium (Levothyroxine Sodium 150 Mcg Tablet) 150 mcg PO BEDTIME [facility] Last Admin: 08/09/24 19:50 Dose: 150 mcg Documented By: JENNIFER Lisinopril (Lisinopril 5 Mg Tablet) 5 mg PO DAILY [facility]; Protocol Last Admin: 08/08/24 08:21 Dose: 5 mg Documented By: DANILO Magnesium Hydroxide (Milk Of Magnesia 30 Ml Oral.Susp) 30 ml PO DAILY PRN PRN Reason: Constipation Melatonin (Melatonin 3 Mg Tablet) 6 mg PO BEDTIME PRN PRN Reason: Insomnia Last Admin: 08/09/24 21:12 Dose: 6 mg Documented By: JENNIFER Non-Formulary Medication (Semaglutide [Rybelsus]) 3 mg PO DAILY [facility] Sodium Chloride (0.9 % Sodium Chloride Flush 3 Ml Syringe) 3 ml IVFLUSH QSHIFT [facility] Last Admin: 08/10/24 07:57 Dose: Not Given Documented By: WATSON Non-Admin Reason: No Access Zolpidem Tartrate (Zolpidem Tartrate 5 Mg Tablet) 5 mg PO BEDTIME PRN PRN Reason: Insomnia Labs 08/07/24 05:39 08/10/24 05:27 Labs: Laboratory Results - last 24 hr 08/09/24 08/10/24 08/10/24 19:27 05:27 07:13 Hold Purple Top SEE NOTE Anion Gap 14 Estim Creat Clear Calc 88.7 Estimated GFR > 60 POC Glucose 193 H 149 H Random Glucose 134 H Calcium 9.4 Random Vancomycin 08/10/24 08/10/24 10:16 10:55 Hold Purple Top Anion Gap Estim Creat Clear Calc Estimated GFR POC Glucose 167 H Random Glucose Calcium Random Vancomycin 16.1 Assessment and Plan (1) PAD (peripheral artery disease): Status: Acute (2) Uncontrolled diabetes mellitus with hyperglycemia, without long-term current use of insulin: Status: Acute (3) Acute osteomyelitis of toe of left foot: Status: Acute (4) Diabetic foot infection: Status: Acute Plan 59F PMH DM, morbid obesity, chronic pain/ back spasms, hypothryoid, hld presented with lle erythema Left lower extremity cellulitis and concern for left 4th toe osteomyelitis due to diabetes XR Foot suggetive of Osteomyelitis dc IV vancomycin Zosyn pending final cultures IV Ertapenem once daily arterial duplex not showing any significant stenosis, Vascular surgery following Follow-up cultures ID eval, 6 weeks IV Ertapenem follow Vancomycin trough PICC line did not work out today and IR team will try again tomorrow Morbid obesity Weight loss recommended Unctonrolled type 2 Diabetes Refusing Insulin sliding scale Lisinopril for proteinuria Check HbA1c of 9.9 restart GLipizide and Semaglutide To speak again to her about the need of better control and Insulin usage while inpatient. Chronic pain/back spasms Continue hydromorphone and Valium Hypothyroid Continue levothyroxine Hyperlipidemia continue statin DVT prophylaxis with Lovenox Full Code Patient with significant cellulitis and osteomyelitis requiring IV antibiotics at risk for further decompensation due to diabetes, therefore expected require overnight inpatient stay Quality Stroke Does the patient have a stroke diagnosis?: No VTE Prior VTE?: No VTE Risk Level:: Medical - moderate - high VTE Device Contraindication: Treatment Not Indicated VTE Drug Contraindication: N/A - Med Ordered
[2024-08-10 17:07] LABS: Glucose, Whole Blood 121 mg/dL (60-115)
[2024-08-10 17:16] VITALS: BP 146/78; PULSE 91; RESP 18; TEMP 36.6; O2SAT 98
[2024-08-10] MEDS: Ertapenem Sodium 1 GM in 0.9 % Sodium Chloride 50 ML IV (17:51)
[2024-08-10 20:00] VITALS: BP 114/68; PULSE 53; RESP 18; TEMP 36.1
[2024-08-10 20:05] LABS: Glucose, Whole Blood 160 mg/dL (60-115)
[2024-08-10] MEDS: Levothyroxine Sodium 150 MCG TABLET PO (21:12)
[2024-08-11 07:55] VITALS: BP 122/75; PULSE 82; RESP 18; TEMP 36; O2SAT 97
[2024-08-11 08:02] LABS: Glucose, Whole Blood 155 mg/dL (60-115)
[2024-08-11] MEDS: glipiZIDE XL 5 MG TAB.ER.24 PO (08:43)
[2024-08-11] MEDS: Atorvastatin Calcium 10 MG TABLET PO (08:43)
[2024-08-11] MEDS: diazePAM 5 MG TABLET 10 MG PO (08:44)
[2024-08-11] MEDS: 0.9 % Sodium Chloride Flush 3 ML SYRINGE IVFLUSH (08:44)
[2024-08-11] MEDS: Ertapenem Sodium 1 GM in 0.9 % Sodium Chloride 50 ML IV (10:40)
[2024-08-11 11:16] LABS: Glucose, Whole Blood 162 mg/dL (60-115)
--- NOTE | 2024-08-11 11:43 | MHC.CM.PN ---
DP: PT HAS BEEN MEDICALLY CLEARED FOR DC HOME WITH [facility] FOR HOME INFUSION. [facility] WILL BE IN BEFORE DC TO DO TEACH. RN AWARE. CM AWAITING PICC REPORT TO FAX TO [facility]. PT HAS OWN [facility] HOME.
--- NOTE | 2024-08-11 12:49 | PM.PROC ---
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 Tip at cavoatrial junction. No immediate complications. Ok for immediate use. Zaid APARICIO Interventional Radiologu Anesthesia: local Disposition: floor
== END 2024-08-11 13:23 | disposition home health service (06) | DRG 344 ==
LOC: HO.ED 23:39 → HO.EDOVER 08-07 00:06 → HO.S3 08-07 00:19
PROVIDERS: Physician Assistant; Admitting Provider Internal Medicine; Emergency Provider Emergency Medicine; Visit Provider Student in an Organized Health Care Education/Training Program
DX: E11.69 Type 2 diabetes mellitus with other specified complication (principal); M86.172 Other acute osteomyelitis, left ankle and foot; E11.621 Type 2 diabetes mellitus with foot ulcer; E11.40 Type 2 diabetes mellitus with diabetic neuropathy, unspecified; L97.529 Non-pressure chronic ulcer of other part of left foot with unspecified severity; E03.9 Hypothyroidism, unspecified; E11.628 Type 2 diabetes mellitus with other skin complications; E66.01 Morbid (severe) obesity due to excess calories; G89.29 Other chronic pain; E11.65 Type 2 diabetes mellitus with hyperglycemia; M62.830 Muscle spasm of back; Z68.41 Body mass index [BMI] 40.0-44.9, adult; E78.5 Hyperlipidemia, unspecified; I10 Essential (primary) hypertension; Z79.84 Long term (current) use of oral hypoglycemic drugs; Z87.891 Personal history of nicotine dependence; Z79.890 Hormone replacement therapy; Z79.899 Other long term (current) drug therapy
CPT/HCPCS: 36415; 36573; 73630; 80048; 80076; 80202; 81001; 82947; 83036; 83605; 83735; 85025; 85027; 85652; 86140; 87040; 87086; 87147; 93926; 93971; 99285; J1335; J1940; J2543; J3370; J3371

== ENCOUNTER 2024-08-07 | Outpatient (BNV) | payer BC, SELFPAY | END 2024-08-11 09:41 | PROVIDERS: Admitting Provider Internal Medicine; Emergency Provider Emergency Medicine; Visit Provider Radiology Diagnostic Radiology | DX: E11.628 Type 2 diabetes mellitus with other skin complications (principal); L08.89 Other specified local infections of the skin and subcutaneous tissue | CPT/HCPCS: 36573 ==

== ENCOUNTER → 2024-08-07 | Outpatient (BNV) | payer BC, SELFPAY | PROVIDERS: Admitting Provider Internal Medicine; Emergency Provider Emergency Medicine; Visit Provider Internal Medicine | DX: M86.172 Other acute osteomyelitis, left ankle and foot (principal); I73.9 Peripheral vascular disease, unspecified; E11.621 Type 2 diabetes mellitus with foot ulcer; L97.529 Non-pressure chronic ulcer of other part of left foot with unspecified severity; L08.9 Local infection of the skin and subcutaneous tissue, unspecified; E66.01 Morbid (severe) obesity due to excess calories; Z68.41 Body mass index [BMI] 40.0-44.9, adult | CPT/HCPCS: 99223; 99232; 99239; 99499; G0180 ==

== ENCOUNTER → 2024-08-07 | Outpatient (BNV) | payer BC, SELFPAY | PROVIDERS: Admitting Provider Internal Medicine; Emergency Provider Emergency Medicine; Visit Provider Internal Medicine | DX: I73.9 Peripheral vascular disease, unspecified (principal); E11.628 Type 2 diabetes mellitus with other skin complications; L08.9 Local infection of the skin and subcutaneous tissue, unspecified; M86.172 Other acute osteomyelitis, left ankle and foot | CPT/HCPCS: 99222 ==

== ENCOUNTER → 2024-08-07 | Outpatient (BNV) | payer BC, SELFPAY | PROVIDERS: Admitting Provider Internal Medicine; Emergency Provider Emergency Medicine; Visit Provider Surgery Vascular Surgery | DX: I73.9 Peripheral vascular disease, unspecified (principal) | CPT/HCPCS: 99222; 99232 ==

== ENCOUNTER 2024-08-17 15:11 | Outpatient (REF) | payer BC, SELFPAY ==
[2024-08-17 15:16] LABS: MANUAL DIFF FLAG NO
[2024-08-17 15:19] LABS: Basophils Absolute Auto 0.1 X10*3/uL (0.0-0.2); Basophils Percent Auto 0.6 % (0-2); Eosinophils Absolute Auto 0.2 X10*3/uL (0.0-0.4); Eosinophils Percent Auto 2.2 % (0-4); Hematocrit 42.3 % (37.0-47.0); Hemoglobin 14.4 g/dl (12.0-16.0); Imm Gran Abs Auto 0.02 X10*3/uL (0.00-0.03); Imm Gran Pct Auto 0.2 % (0.0-0.4); Lymphocytes Absolute Auto 3.1 X10*3/uL (1.2-4.9); Mean Corpuscular Hemoglobin 29.8 pg (27.0-33.0); Mean Corpuscular Volume 87.6 fL (80.0-98.0); Mean Platelet Volume 12.3 fL (9.4-12.3); Monocytes Absolute Auto 0.7 X10*3/uL (0.1-1.2); Monocytes Percent Auto 7.2 % (2-11); Neutrophils Absolute Auto 5.6 x10*3/uL (2.0-8.3); Neutrophils Percent Auto 57.8 % (45-73); Platelet Count 168 X10*3/uL (160-400); Red Blood Count 4.83 X10*6/uL (4.20-5.50); Red Cell Distribution Width 11.9 % (11.0-16.0); White Blood Count 9.7 X10*3/uL (4.8-10.8)
[2024-08-17 15:54] LABS: Estimated Glomerular Filt Rate > 60
== END 2024-08-17 15:12 | disposition home or self-care (01) ==
LOC: HO.HVNA 15:11
PROVIDERS: Visit Provider Internal Medicine
DX: M86.18 Other acute osteomyelitis, other site (principal)
CPT/HCPCS: 36415; 82565; 85025

== ENCOUNTER 2024-08-21 11:39 | Outpatient (AMB) | payer BC, SELFPAY ==
--- NOTE | 2024-08-21 11:35 | MHC.OFFVIS ---
Vital Signs 08/21/24 11:36 Height 5 ft 4 in Weight 222 lb 4 oz BMI 38.1 BP 126/78 Blood Pressure Location Lt brachial Position Sitting Intake Visit Reasons: Osteomylitis Facility Service Manager Required: No Allergies metformin Allergy (Unknown, Verified 08/31/24 15:20) Unknown oxycodone [From PERCOCET] Allergy (Unknown, Verified 08/31/24 15:20) HEADACHE, UPSET STOMACH Sulfa (Sulfonamide Antibiotics) [SULFA (SULFONAMIDE ANTIBIOTICS)] Allergy (Unknown, Verified 08/31/24 15:20) unknown acetaminophen [From VICODIN] Adverse Reaction (Unknown, Verified 08/31/24 15:20) HEADACHE, UPSET STOMACH cortisone [CORTISONE] Adverse Reaction (Unknown, Verified 08/31/24 15:20) flu like symptoms hydrocodone [From VICODIN] Adverse Reaction (Unknown, Verified 08/31/24 15:20) HEADACHE, UPSET STOMACH prednisone [PREDNISONE] Adverse Reaction (Unknown, Verified 08/31/24 15:20) flu like symptoms HPI HPI Osteomylitis: Details: She has foot infection,OM left fourth toe. She has no fever or chills and is doing well. October 01 last day IV Ertapenem. [facility] Medical History PAD (peripheral artery disease) Uncontrolled diabetes mellitus with hyperglycemia, without long-term current use of insulin Morbid obesity Diabetes mellitus Social History Household Members: Family and Other Household Members Other:: mother Housing: House Do you presently have visiting nurse or other home services: No Patient Tobacco Use Status: Former Tobacco user Substance Use Type: Marijuana service: No Review of Systems Const All systems reviewed & are unremarkable except as noted in HPI and below Physical Exam Vital Signs: Last Vital Signs BP 126/78 08/21/24 11:36 BMI result Body Mass Index 38.1 Const Other: General: cooperative Orientation/consciousness: patient oriented x3 HEENT Head: Yes normal to inspection Mouth: Normal oral and palatal mucosa present Eyes General: appearance normal, both eyes and all related structures Pupils: Equal, round and reactive pupils present Resp Effort & Inspection: normal respiratory effort Cardio Rate: regular rate Rhythm: regular rhythm GI Palpation (GI): Soft to palpation and nontender General: Yes no CVA tenderness Back/Spine/Pelvis Back: no CVA tenderness Skin General skin exam: no rashes or lesions noted Neuro General: patient oriented x3 Cranial nerves: Yes CN's II-XII intact bilaterally and Yes Equal, round and reactive pupils present Extrem Other: reddened fourth left toe neuropathy Psych Appearance: grossly normal Assessment & Plan Assessment & Plan (1) Acute osteomyelitis of toe of left foot: Comment: She is tolerating antibiotics Code(s): M86.172 - Other acute osteomyelitis, left ankle and foot Category: Medical Plan: Finish antibiotics IV October 01. See in three weeks. Coding Level of Care Code Est Pt Level 3 (02761) Diagnoses Acute osteomyelitis of toe of left foot M86.172
[2024-08-21 11:36] VITALS: BP 126/78; BMI 38.1
== END 2024-08-21 12:28 | disposition home or self-care (01) ==
LOC: HO.HID 11:39
PROVIDERS: Visit Provider Internal Medicine
DX: M86.172 Other acute osteomyelitis, left ankle and foot (principal)
CPT/HCPCS: 99213

== ENCOUNTER → 2024-08-21 11:39 | Outpatient (BNVA) | payer BC, SELFPAY | PROVIDERS: Visit Provider Internal Medicine ==

== ENCOUNTER 2024-08-31 14:49 | Outpatient (AMB) | payer BC, SELFPAY ==
--- NOTE | 2024-08-31 14:53 | A.OFFVIS_ITS ---
Vital Signs 08/31/24 14:54 Height 5 ft 4 in Weight 232 lb BMI 39.8 Pulse 105 H Pulse Source Pulse Oximeter Temp 98.6 F Temp Source Oral Pulse Oximetry (%) 98 Oxygen Delivery Method Room Air Intake Visit Reasons: piccline removal/request per patient/oral request Allergies metformin Allergy (Unknown, Verified 08/31/24 15:20) Unknown oxycodone [From PERCOCET] Allergy (Unknown, Verified 08/31/24 15:20) HEADACHE, UPSET STOMACH Sulfa (Sulfonamide Antibiotics) [SULFA (SULFONAMIDE ANTIBIOTICS)] Allergy (Unknown, Verified 08/31/24 15:20) unknown acetaminophen [From VICODIN] Adverse Reaction (Unknown, Verified 08/31/24 15:20) HEADACHE, UPSET STOMACH cortisone [CORTISONE] Adverse Reaction (Unknown, Verified 08/31/24 15:20) flu like symptoms hydrocodone [From VICODIN] Adverse Reaction (Unknown, Verified 08/31/24 15:20) HEADACHE, UPSET STOMACH prednisone [PREDNISONE] Adverse Reaction (Unknown, Verified 08/31/24 15:20) flu like symptoms HPI HPI piccline removal/request per patient/oral request: Details: She feels well She finished six weeks IV antibiotics per notes. [facility] Medical History PAD (peripheral artery disease) Uncontrolled diabetes mellitus with hyperglycemia, without long-term current use of insulin Morbid obesity Diabetes mellitus Social History Household Members: Family and Other Household Members Other:: mother Housing: House Do you presently have visiting nurse or other home services: No Patient Tobacco Use Status: Former Tobacco user Substance Use Type: Marijuana service: No Physical Exam Vital Signs: Last Vital Signs Temp 98.6 F 08/31/24 14:54 Pulse 105 H 08/31/24 14:54 Pulse Ox 98 08/31/24 14:54 Oxygen Delivery Method Room Air 08/31/24 14:54 BMI result Body Mass Index 39.8 Const General: cooperative HEENT Head: Yes normal to inspection Face and sinus: Yes normal facial exam Mouth: Normal oral and palatal mucosa present Teeth and gingiva: dentition normal Eyes General: appearance normal, both eyes and all related structures Pupils: Equal, round and reactive pupils present Resp Effort & Inspection: normal respiratory effort Cardio Rate: regular rate Rhythm: regular rhythm GI Palpation (GI): Soft to palpation and nontender General: Yes no CVA tenderness Back/Spine/Pelvis Back: no CVA tenderness Skin General skin exam: no rashes or lesions noted Neuro General: moves all extremities Cranial nerves: Yes Equal, round and reactive pupils present Extrem Other: healing foot are Psych Appearance: grossly normal Assessment & Plan Assessment & Plan (1) Acute osteomyelitis of toe of left foot: Comment: She is tolerating antibiotics Code(s): M86.172 - Other acute osteomyelitis, left ankle and foot Category: Medical Plan: Six weeks IV antibioitic Orders: Orders IR cvc remove any age 1009/02/24 M86.172 - Other acute osteomyelitis, left ankle and foot Medications: New doxycycline hyclate 100 mg PO BID 30 days 60 caps 0RF Coding Level of Care Code Est Pt Level 3 (58138) Diagnoses Acute osteomyelitis of toe of left foot M86.172
[2024-08-31 14:54] VITALS: PULSE 105; TEMP 37; O2SAT 98; BMI 39.8
== END 2024-08-31 15:39 | disposition home or self-care (01) ==
LOC: HO.HID 14:50
PROVIDERS: PCP Family Medicine; Visit Provider Internal Medicine
DX: M86.172 Other acute osteomyelitis, left ankle and foot (principal)
CPT/HCPCS: 99213

== ENCOUNTER → 2024-08-31 14:49 | Outpatient (BNVA) | payer BC, SELFPAY | PROVIDERS: PCP Family Medicine; Visit Provider Internal Medicine ==

== ENCOUNTER 2024-09-02 14:15 | Outpatient (REF) | payer BC, SELFPAY | END 2024-09-02 14:16 | disposition home or self-care (01) | LOC: HO.RADIR 14:15 | PROVIDERS: Visit Provider Internal Medicine | DX: Z13.89 Encounter for screening for other disorder (principal) ==

== ENCOUNTER 2024-09-03 12:48 | Outpatient (RCR) | payer BC, SELFPAY | END 2024-10-23 14:08 | disposition home or self-care (01) | LOC: HO.WCC 12:48 | PROVIDERS: PCP Family Medicine; Visit Provider Surgery | DX: Z09 Encounter for follow-up examination after completed treatment for conditions other than malignant neoplasm (principal); E11.9 Type 2 diabetes mellitus without complications; Z86.31 Personal history of diabetic foot ulcer | CPT/HCPCS: 99212 ==

== ENCOUNTER 2024-09-23 13:26 | Outpatient (AMB) | payer BC, SELFPAY ==
[2024-09-23 13:29] VITALS: PULSE 106; TEMP 36.8; O2SAT 98; BMI 40.0
--- NOTE | 2024-09-23 13:29 | A.OFFVIS_ITS ---
Vital Signs 3 09/23/24 13:29 Height 5 ft 4 in Weight 233 lb BMI 40.0 Pulse 106 H Pulse Source Pulse Oximeter Temp 98.3 F Temp Source Oral Pulse Oximetry (%) 98 Oxygen Delivery Method Room Air Intake Visit Reasons: f/u 4 wks. Allergies metformin Allergy (Unknown, Verified 09/23/24 13:30) Unknown oxycodone [From PERCOCET] Allergy (Unknown, Verified 09/23/24 13:30) HEADACHE, UPSET STOMACH Sulfa (Sulfonamide Antibiotics) [SULFA (SULFONAMIDE ANTIBIOTICS)] Allergy (Unknown, Verified 09/23/24 13:30) unknown acetaminophen [From VICODIN] Adverse Reaction (Unknown, Verified 09/23/24 13:30) HEADACHE, UPSET STOMACH cortisone [CORTISONE] Adverse Reaction (Unknown, Verified 09/23/24 13:30) flu like symptoms hydrocodone [From VICODIN] Adverse Reaction (Unknown, Verified 09/23/24 13:30) HEADACHE, UPSET STOMACH prednisone [PREDNISONE] Adverse Reaction (Unknown, Verified 09/23/24 13:30) flu like symptoms HPI HPI f/u 4 wks.: Details: She has OM left foot. She has PICC remove 09/02. She said foot doesnt look any better. She has been on Doxycycline for a month. [facility] Medical History PAD (peripheral artery disease) Uncontrolled diabetes mellitus with hyperglycemia, without long-term current use of insulin Morbid obesity Diabetes mellitus Social History Household Members: Family and Other Household Members Other:: mother Housing: House Do you presently have visiting nurse or other home services: No Patient Tobacco Use Status: Former Tobacco user Substance Use Type: Marijuana service: No Review of Systems Const All systems reviewed & are unremarkable except as noted in HPI and below Physical Exam Vital Signs: Last Vital Signs Temp 98.3 F 09/23/24 13:29 Pulse 106 H 09/23/24 13:29 Pulse Ox 98 09/23/24 13:29 Oxygen Delivery Method Room Air 09/23/24 13:29 BMI result Body Mass Index 40.0 Const Other: General: cooperative Orientation/consciousness: patient oriented x3 HEENT Head: Yes normal to inspection Mouth: Normal oral and palatal mucosa present Eyes General: appearance normal, both eyes and all related structures Pupils: Equal, round and reactive pupils present Resp Effort & Inspection: normal respiratory effort Cardio Rate: regular rate Rhythm: regular rhythm GI Palpation (GI): Soft to palpation and nontender General: Yes no CVA tenderness Back/Spine/Pelvis Back: no CVA tenderness Skin General skin exam: no rashes or lesions noted Neuro General: patient oriented x3 Cranial nerves: Yes CN's II-XII intact bilaterally and Yes Equal, round and reactive pupils present Extrem Other: foot some swelling,left Psych Appearance: grossly normal Assessment & Plan Assessment & Plan (1) Acute osteomyelitis of toe of left foot: Comment: She still has some discomfort and swelling. Code(s): M86.172 - Other acute osteomyelitis, left ankle and foot Category: Medical Plan: Check XR left foot check OM Check uric acid,gout. Linezolid for a month and then see us. Orders: Orders 2 XR foot LT 2V 09/23/24 M86.172 - Other acute osteomyelitis, left ankle and foot Uric Acid 09/23/24 M86.172 - Other acute osteomyelitis, left ankle and foot Medications: New 2 linezolid 600 mg PO BID 60 tabs 0RF 30 days Coding Level of Care Code Est Pt Level 3 (70912) Diagnoses Acute osteomyelitis of toe of left foot M86.172
== END 2024-09-23 13:58 | disposition home or self-care (01) ==
LOC: HO.HID 13:26
PROVIDERS: PCP Family Medicine; Visit Provider Internal Medicine
DX: M86.172 Other acute osteomyelitis, left ankle and foot (principal)
CPT/HCPCS: 99213

== ENCOUNTER 2024-09-23 13:26 | Outpatient (REF) | payer BC, SELFPAY ==
[2024-09-23 15:39] LABS: Uric Acid 5.1 mg/dL (2.4-5.7)
== END 2024-09-23 13:27 | disposition home or self-care (01) ==
LOC: HO.LAB 13:26
PROVIDERS: PCP Family Medicine; Visit Provider Internal Medicine
DX: M86.172 Other acute osteomyelitis, left ankle and foot (principal)
CPT/HCPCS: 36415; 73620; 84550